=== PATIENT | female | born 1960 | race Caucasian/White ===

== ENCOUNTER 2018-05-24 04:06 | Day surgery (SDC) | payer BC ==
[~2018-05-24] VITALS: Ht 165.1 cm; Wt 108.0 kg
[~2018-05-24 04:06] MED LIST: IBUP-1127 PO; METO-236 PO; MOVIPREP POWDER PACKET PO STA
[2018-05-24] MEDS ORDERED: NS 1000ML 1,000 ML ONE (05:41)
[2018-05-24] MEDS ORDERED: DIPRIVAN IV ONE (06:42)
[2018-05-24] MEDS ORDERED: VERSED ONE (06:42)
[2018-05-24] MEDS ORDERED: SUBLIMAZE ONE (06:42)
[2018-05-24] MEDS ORDERED: WATER ONE (07:21)
[2018-05-24] MEDS ORDERED: NS 1000ML 1,000 ML IV SCH (07:30)
[2018-05-24 07:32] VITALS: BP 120/77
[2018-05-24 09:00] VITALS: BP 90/56
[2018-05-24] MEDS ORDERED: ZOFRAN ONE (09:11)
[2018-05-24 09:15] VITALS: BP 112/70
[2018-05-24 09:30] VITALS: BP 101/66
[2018-05-24] MEDS ORDERED: DILAUDID IV PRN (09:30)
[2018-05-24] MEDS ORDERED: PHENERGAN IV PRN (09:30)
[2018-05-24] MEDS ORDERED: ZOFRAN IV PRN (09:30)
[2018-05-24] MEDS ORDERED: BENADRYL IV PRN (09:30)
[2018-05-24 09:45] VITALS: BP 103/41
--- NOTE | 2018-05-24 12:15 | OPH ---
DATE OF SURGERY: 05/24/2018 PREOPERATIVE DIAGNOSES: History of dyspepsia and history of problems constipation. History of previous colectomy. POSTOPERATIVE DIAGNOSES: 1. Periglottic polyp. 2. Gastritis. 3. Gastric lipoma. 4. Esophagitis. 5. Diverticular disease of colon. 6. Check path on multiple rectal polyps. SURGEON: Jewel Jane DO PEER SPECIALIST: OR staff. ANESTHESIA: Total intravenous anesthesia by Juan Carlos Bernal CRNA. PROCEDURES PERFORMED: 1. Esophagogastroduodenoscopy with biopsy. 2. Long flexible colonoscopy to the cecum with cold forceps polypectomy in the rectum. SPECIMENS: 1. Gastric mucosa. 2. Esophageal mucosa. 3. Rectal polyp, all to path. ESTIMATED BLOOD LOSS: 7 mL. COUNTS: At the completion of the case, the counts were correct per OR staff. DESCRIPTION OF PROCEDURE: The patient is a very pleasant 57-year-old female known from previous evaluation. Prior to procedure, informed consent was obtained. At time of procedure, she was taken to the operative suite and placed in supine position. After time-out, she was placed in lateral recumbent position. After adequate sedation, esophagogastroduodenoscope was advanced transorally with deflation distally. In the periglottic folds, just superior to the vocal cords on the patient's left side, a polyp was identified. Due to its location, it is not biopsied. The camera was advanced further to the level of the second portion of duodenum. Once the duodenum was adequately visualized, camera was slowly withdrawn to facilitate the visualization of the duodenal bulb and the pylorus. Pylorus and distal stomach showed gastritis and biopsies were obtained. Retroflexed maneuver was performed. Cardia was grossly normal in the proximal stomach. Submucosal lipoma is identified. Camera was reduced. Stomach was decompressed. Scope was slowly withdrawn. Distal esophagus shows esophagitis and biopsies were obtained. The mid and proximal esophagus were grossly normal. The camera was removed. Procedure was discontinued. The patient remained in the OR. Timeout was previously completed. With adequate sedation, rectal exam was performed. There was noted to be a small hemorrhoid. There were no masses. Next, the colonoscope was advanced transanally with pneumoinsufflation proximally to the level of the cecum. Quality of prep was good. Once cecum was visualized, camera was slowly withdrawn to facilitate visualization of the ascending colon, hepatic flexure, transverse colon. In the splenic flexure distally, there is identified some diverticular disease. At the proximal rectum anastomosis from previous resection is identified. This is consistent with something of an extended sigmoid resection. The anastomosis grossly patent and normal. The minimal portion of descending colon does show some diverticular disease. The rectum was grossly normal; however, in the mid distal rectum, multiple small polyps identified, was removed with cold forceps. At level of 5 cm, camera was retroflexed and reinserted. Anal verge was visualized within normal limits. Camera was reduced. Colon was decompressed. Colonoscope was removed. A small external hemorrhoid was identified. The patient tolerated this procedure well. There were no acute complications noted. Jewel Jane DO DR: FIORELLA/maximino JOB# [id number] CC: Dr. Nik Pelayo
== END 2018-05-24 10:00 | disposition home or self-care (01) | DRG 392 ==
LOC: SDC 04:06
PROVIDERS: ATTEND Surgery
DX: K29.70 Gastritis, unspecified, without bleeding (principal); K62.1 Rectal polyp; K20.9 Esophagitis, unspecified; K57.30 Diverticulosis of large intestine without perforation or abscess without bleeding; K64.4 Residual hemorrhoidal skin tags; E78.5 Hyperlipidemia, unspecified; E66.9 Obesity, unspecified; Z68.39 Body mass index [BMI] 39.0-39.9, adult; Z79.899 Other long term (current) drug therapy; Z87.891 Personal history of nicotine dependence; Z98.51 Tubal ligation status; Z85.828 Personal history of other malignant neoplasm of skin; Z90.49 Acquired absence of other specified parts of digestive tract; Z90.710 Acquired absence of both cervix and uterus; Z88.8 Allergy status to other drugs, medicaments and biological substances; Z83.3 Family history of diabetes mellitus; Z82.5 Family history of asthma and other chronic lower respiratory diseases; Z82.49 Family history of ischemic heart disease and other diseases of the circulatory system
CPT/HCPCS: 43239; 45380; 88305; J2250; J2405; J3010; J3490; J7030; G0121

== ENCOUNTER → 2018-10-25 | Outpatient (CLI) | payer BC, SELFPAY ==
[~2018-10-25] MED LIST changes: +KENALOG-40 IM ONE; +LIDOCAINE 2% VIAL SQ ONE; -MOVIPREP POWDER PACKET PO STA
--- NOTE | 2018-10-25 13:45 | DIREP ---
PROCEDURE:FLUOROSCOPIC GUIDANCE NEEDLE PLACEMENT COMPARISON:None. INDICATIONS:OA RIGHT HIP; 0.6 MIN FLUORO TIME; 38.722 mGy TOTAL DOSE TECHNIQUE:After explaining the risks, benefits, and alternatives, both oral and written informed consent was obtained from the patient for fluoroscopically-guided hip steroid injection. The patient's right hip area was sterilely prepped and draped. The proposed needle tract was anesthetized with 1% lidocaine solution. Under fluoroscopic guidance, a 22 gauge spinal needle was advanced into the right hip joint. A small amount of contrast was injected confirm positioning. A mixture of 6 cc 2% lidocaine, and 1 cc of Kenalog 40 was injected into the hip joint. The needle was then removed. The patient experienced no postprocedural complication. Total fluoroscopy time 0.6 minutes FINDINGS:Imaging documents needle placement and injection of the right femoral head and anatomic neck. CONCLUSION:Fluoroscopic-guided right hip joint injection. Dictated by: Rigo Ocampo MD on 10/25/2018 at 01:47 PM
== END | disposition home or self-care (01) ==
LOC: RAD 09:33
PROVIDERS: ATTEND Orthopaedic Surgery
DX: M16.11 Unilateral primary osteoarthritis, right hip (principal); I25.10 Atherosclerotic heart disease of native coronary artery without angina pectoris; E78.5 Hyperlipidemia, unspecified; Z79.1 Long term (current) use of non-steroidal anti-inflammatories (NSAID); Z79.899 Other long term (current) drug therapy; Z90.710 Acquired absence of both cervix and uterus; Z90.49 Acquired absence of other specified parts of digestive tract; Z88.8 Allergy status to other drugs, medicaments and biological substances; Z87.891 Personal history of nicotine dependence; Z85.828 Personal history of other malignant neoplasm of skin; Z98.51 Tubal ligation status; Z82.5 Family history of asthma and other chronic lower respiratory diseases; Z82.49 Family history of ischemic heart disease and other diseases of the circulatory system; Z83.3 Family history of diabetes mellitus
CPT/HCPCS: 20610; 77002; J2001; J3301; Q9965

== ENCOUNTER 2018-11-23 04:40 | Inpatient (IN) | payer BC ==
[2018-11-19 16:08] VITALS: BP 136/68
--- NOTE | 2018-11-19 16:39 | PCM.EKG ---
[facility] Test Date: 2018-11-19 Test Time: 16:33:15 Pat Name: NORA JULIAN Department: Room: Gender: F Arboriculturist: AWLVLiberty : 1960 Requested By: JEAN CLAYTON Order Number: [id number] Reading MD: Chuck Young Measurements Intervals [place] Rate: 68 P: 68 W[place]: 180 QRS: 66 QRSD: 86 T: 60 QT: 408 QTc: 433 Interpretive Statements Normal sinus rhythm Nonspecific ST and T wave abnormality Abnormal ECG No previous ECG available for comparison Electronically Signed On 11-20-2018 10:24:09 DOCUMENT SCANNER by Chuck Young Please click the below link to view image of tracing.
[2018-11-19 16:55] LABS: BASOPHIL % 0.4 % (0.0-0.2); EOSINOPHIL # 0.2 10^3/uL (0.0-0.2); EOSINOPHIL % 3.4 % (0.0-5.0); HEMOGLOBIN 14.4 g/dL (12.0-15.0); LYMPHOCYTES # 1.6 10^3/uL (1.0-4.8); LYMPHOCYTES % 22.6 % (24.0-44.0); MEAN CELL HGB 30.3 pg (26-34); MEAN CELL HGB CONCENTRATION 33.9 g/dL (33-37); MEAN CORP VOLUME 89.5 fL (78-100); MEAN PLATELET VOLUME 10.3 fL (7.8-11.0); MONOCYTES # 0.4 10^3/uL (0.3-0.8); MONOCYTES % 5.5 % (5.0-12.0); NEUTROPHIL # 4.8 10^3/uL (1.8-7.7); NEUTROPHILS % 67.8 % (41.0-85.0); PLATELET COUNT 236 10^3/uL (150-400); RED CELL DISTRIBUTION WIDTH 14.3 % (11.5-14.5); WHITE BLOOD CELL 7.1 10^3/uL (4.5-11.0)
[2018-11-19 17:11] LABS: CALCIUM 9.3 mg/dL (8.4-10.5); CARBON DIOXIDE 26.8 mmol/L (20.0-32)
[2018-11-19 17:18] LABS: BILIRUBIN,URINE NEGATIVE (NEGATIVE); UROBILINOGEN,URINE NORMAL (NEGATIVE)
[2018-11-19 17:22] LABS: APPEARANCE,URINE CLEAR (CLEAR); UA COLOR YELLOW (YELLOW)
[~2018-11-23] VITALS: Ht 167.6 cm; Wt 103.9 kg
[2018-11-23] VITALS (10 sets, daily range): BP systolic 106–132; BP diastolic 52–91
[~2018-11-23 04:40] MED LIST changes: +CHOL500016 PO; +CYAN10005 PO; -KENALOG-40 IM ONE; -LIDOCAINE 2% VIAL SQ ONE; +VITA100T7 PO; +[UNRECOGNIZED DRUG - CODE] PO
[2018-11-23] MEDS ORDERED: LACTATED RINGERS 1,000 ML ONE ×3 (05:18→14:55)
[2018-11-23] MEDS ORDERED: NS 250ML 250 ML IV ONE ×2 (05:18→08:00)
[2018-11-23] MEDS ORDERED: ANCEF ONE (05:19)
[2018-11-23] MEDS ORDERED: NEOSTIGMINE ONE (06:47)
[2018-11-23] MEDS ORDERED: TORADOL ONE (06:48)
[2018-11-23] MEDS ORDERED: SUBLIMAZE ONE (06:48)
[2018-11-23] MEDS ORDERED: ZOFRAN ONE (06:48)
[2018-11-23] MEDS ORDERED: ZEMURON IV ONE (06:48)
[2018-11-23] MEDS ORDERED: VERSED ONE (06:48)
[2018-11-23] MEDS ORDERED: DILAUDID ONE (06:48)
[2018-11-23] MEDS ORDERED: DIPRIVAN IV ONE (06:49)
[2018-11-23] MEDS ORDERED: SENSORCAINE 0.5% VIAL ONE (06:49)
[2018-11-23] MEDS ORDERED: DECADRON ONE (06:49)
[2018-11-23] MEDS ORDERED: PRECEDEX IV ONE (06:50)
[2018-11-23] MEDS ORDERED: LIDOCAINE 2% VIAL ONE (07:00)
[2018-11-23] MEDS ORDERED: NS 3000ML IRR IR ONE (08:00)
[2018-11-23] MEDS ORDERED: SODIUM CHLORIDE IR ONE (08:00)
[2018-11-23] MEDS ORDERED: NS IV ONE (08:00)
[2018-11-23] MEDS ORDERED: TRANEXAMIC ACID IV ONE (08:06)
[2018-11-23] MEDS ORDERED: LEVO5TAB2 PO (08:48)
[2018-11-23] MEDS ORDERED: LANS30CA PO (08:48)
[2018-11-23] MEDS: LACTATED RINGERS 1,000 ML IV SCH (08:56)
[2018-11-23] MEDS ORDERED: NEURONTIN PO SCH (09:30)
[2018-11-23] MEDS ORDERED: TYLENOL PO SCH (09:30)
[2018-11-23] MEDS ORDERED: TRANSDERM-SCOP TD ONE (09:43)
[2018-11-23] MEDS ORDERED: ROCURONIUM BROMIDE IV ONE (14:56)
[2018-11-23] MEDS ORDERED: EPHEDRINE SULFATE ONE (14:56)
--- NOTE | 2018-11-23 15:12 | DIREP ---
PROCEDURE:XRAY HIP MIN 2VW-RT COMPARISON:None. INDICATIONS:S/P TOTAL LEFT KNEE FINDINGS: BONES:AP and lateral view of the right hip shows right hip arthroplasty.. The [place] right femoral head and the neck have been surgically resected. Skin jeff identified. The bony densities along the greater trochanter may represent soft tissue calcifications or enthesopathy. JOINTS:Bipolar right hip arthroplasty noted. SOFT TISSUES:Normal. OTHER:No additional findings. CONCLUSION:Right hip arthroplasty.. Dictated by: Santosh Banegas MD on 11/23/2018 at 03:09 PM
--- NOTE | 2018-11-23 15:19 | HPH ---
ADMIT DATE: 11/23/2018 CHIEF COMPLAINT: Painful right hip. HISTORY OF PRESENT ILLNESS: A 58-year-old female with a 4-5 month history of pain about the right hip secondary to osteoarthritis. The patient complains of groin pain as well as pain with prolonged walking and standing. She has admitted to Trendelenburg type limp. 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 She takes Flexeril and ibuprofen for the pain with only temporary relief. 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 The patient had temporary relief with intra-articular cortisone and lidocaine injection for about 2 days. MEDICATIONS: Include metoprolol as well as Flexeril and ibuprofen. PAST MEDICAL HISTORY: Include hypertension and obesity. PAST SURGICAL HISTORY: Include back surgery, tubal ligation, hysterectomy, colonoscopy, herniorrhaphy. ALLERGIES: INCLUDE CODEINE. SOCIAL HISTORY: The patient is . She does not smoke or drink. 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 FAMILY HISTORY: Positive for diabetes, renal failure, coronary artery disease as well as cancer. REVIEW OF SYSTEMS: Negative for chest pain, shortness of breath, nausea, vomiting, melena, hematochezia, dysuria, hematuria, fever, chills or weight loss. PHYSICAL EXAMINATION: GENERAL: Shows that she is 5 feet 5 inches and weighs 229 pounds, healthy appearing 58-year-old white female in no acute distress. HEENT: Within normal limits for her age. CHEST: Clear to auscultation. HEART: Regular rate and rhythm. ABDOMEN: Soft, nontender, good bowel sounds. EXTREMITIES: The patient's right hip has no tenderness about the trochanter. She has 90 degrees of flexion of the hip. Her external rotation is approximately 40 with pain, internal rotation has 20 degrees with pain. She has pain with adduction and internal rotation of the right hip. NEUROLOGICAL: The patient is awake and alert. She is oriented x 3. Her cranial nerves 2-12 are grossly intact. She has 5/5 strength in all muscle groups. Her dorsalis pedis and posterior tibial pulses are 2+. IMAGING STUDIES: X-rays show that she is tefg-wg-[id number] about the right hip. ASSESSMENT: Osteoarthritis, right hip. Other diagnoses include hypertension and obesity. PLAN: The patient is admitted for right total hip arthroplasty. The risks and hazards of the procedure have been explained to the patient. She understands the risk involved and wants to proceed as planned. Archie Paez MD DR: [facility]/maximino JOB# [id number]
[2018-11-23] MEDS ORDERED: ZOFRAN IV PRN (15:30)
[2018-11-23] MEDS ORDERED: SUBLIMAZE IV PRN (15:30)
[2018-11-23] MEDS ORDERED: VENTOLIN IH PRN (15:30)
[2018-11-23] MEDS ORDERED: PHENERGAN IV PRN (15:30)
[2018-11-23] MEDS ORDERED: CEPACOL SORE THROAT LOZENGE MM PRN (15:30)
[2018-11-23] MEDS ORDERED: LACTATED RINGERS 1,000 ML IV SCH (15:30)
[2018-11-23] MEDS ORDERED: REGLAN IV PRN (15:30)
[2018-11-23] MEDS ORDERED: BENADRYL IV PRN (15:30)
[2018-11-23] MEDS ORDERED: DILAUDID IV PRN (15:30)
--- NOTE | 2018-11-23 15:44 | PRM.PN ---
Subjective Subjective Date: Nov 23, 2018 Time: 15:42 Subjective awake and alert VSS Pain ok Xrays ok Stable Patient History: Asthma V19 CHILD ( A CHILD) Congestive heart failure 32 MOTHER, , Age:70 Diabetes mellitus G8 BROTHER FH: coronary artery bypass surgery 32 MOTHER, , Age:70 G8 BROTHER FH: coronary artery disease 32 MOTHER, , Age:70 G8 BROTHER Hypertension 32 MOTHER, , Age:70 G8 BROTHER No known health problems G8 SISTER V19 CHILD V19 CHILD V19 CHILD No Family History of: Alzheimer's disease Cerebrovascular disorder Chronic obstructive pulmonary disease Diabetes insipidus Parkinson's disease VTE VTE Risk Total Score: 4 VTE Risk Score VTE Risk: Score 0-1 = Low Risk (Aggressive mobilization; early ambulation; no VTE prophylaxis required) Score 2: Moderate Risk (Intermittent/Pneumatic Compression Device OR Lovenox/Heparin/Coumadin) Score 3-4: High Risk (Intermittent/Pneumatic Compression Device AND Lovenox/Heparin/Coumadin) Score > or =5: Highest Risk (Intermittent/Pneumatic Compression Device AND Lovenox/Heparin/Coumadin) Review of Systems Allergies: Coded Allergies: amoxicillin (Verified Allergy, Unknown, WELPS ON THE FACE, 11/20/18) clavulanic acid (Verified Allergy, Unknown, WELPS ON THE FACE, 11/20/18) codeine (Verified Allergy, Unknown, NAUSEA, VOMITING, 05/16/18) Scheduled Cholecalciferol (Vitamin D3) (Vitamin D3), 1 TAB PO BID, (Reported) Cyanocobalamin (Vitamin B-12) (Vitamin B-12), 1 TAB PO DAILY, (Reported) Lansoprazole (Lansoprazole), 1 CAP PO DAILY, (Reported) Metoprolol Succinate (Metoprolol Succinate), 1 TAB PO DAILY, (Reported) Psyllium Seed (Fiber Therapy), 1,368 GM PO BID, (Reported) Vitamin E Mixed (Vitamin E), 100 UNIT PO DAILY24, (Reported) Scheduled PRN Levocetirizine Dihydrochloride (Levocetirizine Dihydrochloride), 1 TAB PO HS PRN for SINUS DRAINAGE, (Reported) Discontinued Medications Ibuprofen (Ibuprofen), 600 MG PO BID PRN for PAIN, (Reported) Discontinued Reason: No Longer Taking Objective Vitals and I/O Vital Sign - Last 24 Hours 11/23/18 11/23/18 11/23/18 11/23/18 08:42 08:42 09:31 09:39 Temp 98.9 98.9 Pulse 72 76 70 Resp 18 18 18 B/P (MAP) 131/70 (90) 132/63 (86) 109/65 (80) Pulse Ox 96 99 99 O2 Delivery Room Air Room Air Nasal [place] Nasal Canula O2 Flow Rate 2 2 11/23/18 11/23/18 11/23/18 11/23/18 09:41 14:48 14:48 15:03 Temp 98.0 98.0 98.0 98.0 Pulse 69 77 72 Resp 18 16 16 B/P (MAP) 107/63 (78) 109/52 (71) 113/66 (82) Pulse Ox 98 98 98 O2 Delivery Nasal [place] Non-Rebreather Non-Rebreather O2 Flow Rate 2 15 15 15 11/23/18 11/23/18 15:18 15:33 Temp 97.6 97.9 97.6 97.9 Pulse 72 77 Resp 18 18 B/P (MAP) 106/59 (75) 111/66 (81) Pulse Ox 96 98 O2 Delivery Nasal [place] Nasal [place] O2 Flow Rate 3 3 Course Vitals & review Data Vital Sign - Last 24 Hours 11/23/18 11/23/18 11/23/18 11/23/18 08:42 08:42 09:31 09:39 Temp 98.9 98.9 Pulse 72 76 70 Resp 18 18 18 B/P (MAP) 131/70 (90) 132/63 (86) 109/65 (80) Pulse Ox 96 99 99 O2 Delivery Room Air Room Air Nasal [place] Nasal [place] O2 Flow Rate 2 2 11/23/18 11/23/18 11/23/18 11/23/18 09:41 14:48 14:48 15:03 Temp 98.0 98.0 98.0 98.0 Pulse 69 77 72 Resp 18 16 16 B/P (MAP) 107/63 (78) 109/52 (71) 113/66 (82) Pulse Ox 98 98 98 O2 Delivery Nasal [place] Non-Rebreather Non-Rebreather O2 Flow Rate 2 15 15 15 11/23/18 11/23/18 15:18 15:33 Temp 97.6 97.9 97.6 97.9 Pulse 72 77 Resp 18 18 B/P (MAP) 106/59 (75) 111/66 (81) Pulse Ox 96 98 O2 Delivery Nasal [place] Nasal [place] O2 Flow Rate 3 3 Current Medications Medications (Trade) Dose Ordered Sig/Jovanni PRN Reason Start Time Stop Time Status Last Admin Acetaminophen (Tylenol) 1,000 mg Q6H 11/23/18 09:30 12/23/18 09:29 Albuterol Sulfate (Ventolin) 2.5 mg OT PRN WHEEZING 11/23/18 15:30 11/28/18 15:29 Cefazolin Sodium/ Dextrose (Ancef 2 Gm/D5W 50ml) 2 gm Q8 11/23/18 22:00 11/24/18 14:01 UNV Celecoxib (Celebrex) 200 mg BID 11/23/18 21:00 12/23/18 20:59 UNV Celecoxib (Celebrex) 200 mg Q12HR 11/23/18 21:00 11/23/18 21:01 Cholecalciferol (Vitamin D) 5,000 unit BID 11/23/18 21:00 12/23/18 20:59 UNV Cyanocobalamin (Vitamin B-12) 1,000 mcg DAILY 11/24/18 09:00 12/24/18 08:59 UNV Diphenhydramine HCl (Benadryl) 25 mg Q5MIN PRN NAUSEA / VOMITING 11/23/18 15:30 11/28/18 15:29 Docusate Sodium (Colace) 100 mg DAILY 11/24/18 09:00 12/24/18 08:59 UNV Famotidine (Pepcid) 20 mg DAILY 11/24/18 09:00 12/24/18 08:59 UNV Fentanyl Citrate (Sublimaze) 12.5 mcg Q5MIN PRN PAIN 11/23/18 15:30 11/24/18 15:29 11/23/18 15:13 Gabapentin (Neurontin) 400 mg Q24HRS 11/24/18 09:30 11/24/18 09:31 Hydromorphone HCl (Dilaudid) 0.2 mg Q5MIN PRN PAIN MILD 11/23/18 15:30 11/24/18 15:29 Hydromorphone HCl (Dilaudid) 3 mg Q4H PRN PAIN 8-10 11/23/18 15:30 12/23/18 15:29 UNV Metoclopramide HCl (Reglan) 10 mg PRN PRN NAUSEA / VOMITING 11/23/18 15:30 12/23/18 15:29 UNV Metoprolol Succinate (Toprol Xl) 25 mg DAILY 11/24/18 09:00 12/24/18 08:59 UNV Ondansetron HCl (Zofran) 4 mg PRN PRN nv 11/23/18 15:30 11/28/18 15:29 Ondansetron HCl (Zofran) 4 mg Q4H PRN NAUSEA / VOMITING 11/23/18 15:30 12/23/18 15:29 UNV Promethazine HCl (Phenergan) 6.25 mg PRN PRN NAUSEA / VOMITING 11/23/18 15:30 11/28/18 15:29 Rivaroxaban (Xarelto) 10 mg DAILY 11/24/18 09:00 12/24/18 08:59 UNV Throat Lozenges (Cepacol Sore Throat Lozenge) 1 each PRN PRN SORE THROAT 11/23/18 15:30 12/23/18 15:29 UNV Tramadol HCl (Ultram) 50 mg Q4HR 11/23/18 16:00 12/23/18 15:59 UNV Tramadol HCl (Ultram) 100 mg Q4HR PRN SEVERE PAIN 11/23/18 15:30 12/23/18 15:29 UNV O2 Sat by Pulse Oximetry: 98 Oxygen Flow Rate: 3 JEAN CLAYTON MD Nov 23, 2018 15:44
[2018-11-23] MEDS: TYLENOL PO SCH ×2 (15:49→17:11)
--- NOTE | 2018-11-23 15:50 | NUR ---
ARRIVAL PT ARRIVED FROM OR AT THIS TIME. REPORT RECEIVED FROM SHEEBA HURTADO AND ASSUMED CARE OF PT
--- NOTE | 2018-11-23 16:04 | DIREP ---
PROCEDURE:XRAY HIP MIN 2VW-RT COMPARISON:[facility], , XRAY HIP MIN 2VW-RT, 11/23/2018, 02:13 PM. INDICATIONS:postop FINDINGS: BONES:Postoperative AP and lateral views of the right hip shows bipolar right hip arthroplasty. The stem of the femoral component is centrally seated within the shaft of the femur. Postoperative skin jeff noted. JOINTS:Normal. SOFT TISSUES:Normal. OTHER:No additional findings. CONCLUSION:Satisfactory postoperative appearance of the right hip arthroplasty. Dictated by: Santosh Banegas MD on 11/23/2018 at 04:01 PM
--- NOTE | 2018-11-23 16:25 | NUR ---
DISCHARGE PLAN CASE MANAGEMENT VISITED WITH PATIENT , GAB, VIA PHONE @ [phone] BECAUSE PATIENT WAS STILL SLEEPING POST SURGERY. LIVES AT HOME WITH . DOES NOT HAVE DME REQUESTED WALKER FROM [facility]. CM FAXED ORDER TO [facility] AND SPOKE TO LETY ALMONTE ABOUT ORDER. CM ALSO GAVE INSTRUCTIONS TO PICK WALKER UP FROM [facility] TODAY BEFORE 5:00 OR ON MONDAY. GAB ALSO REQUESTED TO HAVE PT/OT TO BE DONE AT [facility] OUTPATIENT PT. CM SPOKE WITH JOBY CASTELLANO PT AND SET UP AN APPOINTMENT FOR Monday11/27/18 @ 0900. CM PUT APPOINTMENT TIME AND INSTRUCTIONS TO TAKE THE YELLOW ORDER FORM TO ADMISSIONS TO PRE REGISTER AT LEAST 30 MINUTES BEFORE APPOINTMENT. DENIES NEED FOR HOME OXYGEN. CM NOTIFIED CEASAR CHERRY RN, CHARGE NURSE OF ABOVE. DISCHARGE GOAL IS TO DISCHARGE HOME WITH AND TO HAVE PHYSICAL THERAPY DONE AT [facility] OUTPATIENT. DENIES FURTHER NEEDS AT THIS TIME.
[2018-11-23] MEDS: ULTRAM PO PRN ×2 (17:10→21:22)
[2018-11-23] MEDS: ZOFRAN IV PRN (17:10)
[2018-11-23] MEDS: ULTRAM PO SCH ×2 (17:11→20:00)
--- NOTE | 2018-11-23 19:59 | OPH ---
DATE OF SURGERY: 11/23/2018 PREOPERATIVE DIAGNOSIS: Osteoarthritis of the right hip. POSTOPERATIVE DIAGNOSIS: Osteoarthritis of the right hip. OPERATIVE PROCEDURE: Right total hip arthroplasty using Medacta size 1 AMIS stem press fit, a size 54 Versafitcup with a 28 mm +3.5 ceramic head and a size 54 dual-articulating cup making it a ceramic on polyethylene right total hip arthroplasty. ANESTHESIA: General endotracheal. BLOOD LOSS: 700 mL. DRAINS: None. DESCRIPTION OF INDICATIONS: A 58-year-old female with debilitating pain about the right hip over the last 5 months. She complains of limping as well as pain with standing. 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 She had temporary relief with a cortisone injection intraarticularly about the hip, but it is no better with Flexeril and Advil. She has jyiy-yd-zudp about the medial and inferior border of the hip. Taken to the operating room today for right total hip arthroplasty for pain relief. DESCRIPTION OF PROCEDURE: The patient was placed on the operating table in the supine position. General endotracheal anesthetic was induced without difficulty. The right foot and ankle were then well padded and placed in the traction unit. Right lower extremity was then sterilely prepped and draped. The patient had an anterior incision made about the hip. The incision was taken through the skin and the subcutaneous tissues. Bleeding was controlled with cautery. The tensor fascia was opened in line with the skin incision. The muscle belly was reflected laterally. The rectus fascia was opened and the rectus muscle was reflected medially. The circumflex vessels were identified and coagulated with the Aquamantys device. The patient then had the fat pad over the capsule excised. The capsular incision was made and the capsule was retracted laterally and proximally. The femoral neck cut was then made with the saw. The patient had a head removed with the corkscrew device. The fovea was cleared of any soft tissue and any bleeding was coagulated with the Aquamantys device. The labrum was excised. The acetabulum was sequentially reamed up to a size 54. The 54 had a good fit both clinically and radiographically. The patient then had a 54 Versafitcup placed and impacted into position. Again, clinically and radiographically, the alignment looked acceptable. The patient then had the posterior ligaments released. The hip was placed in maximal external rotation and hyperextension. We had to shorten neck cut because we were having difficulty passing the rasp down the proximal femur. Eventually, the starter rasp was fully seated and then we sequentially rasped the proximal femur up to a size 1. We did a trial reduction starting with a minus neck length working up to a 3.5. The 3.5 had good stability clinically and radiographically the leg lengths appeared appropriate. The sizing of the components all appeared satisfactory. The trial components were then removed. A size 1 Medacta AMIS stem was then impacted into position. The ____ 28-mm ceramic head with the 54 bipolar cup was then impacted on to the Branch taper neck. Again, the hip was reduced with good stability clinically. Radiographically, the leg lengths appeared appropriate. The sizing of the component and the alignment appeared appropriate. The patient had the wounds irrigated with Betadine solution for 3 minutes. The capsule was closed with a #2 PDS in an interrupted manner. The IT band was then closed with a barbed #2 PDS in a running manner. The subcutaneous was closed with a 2-0 Monocryl barbed in a running manner and the skin was closed with jeff. A Prevena dressing was applied. The patient was extubated in the operating room and sent to recovery in stable condition. Archie Paez MD DR: [facility]/maximino JOB# [id number]
[2018-11-23 20:15] LABS: HEMOGLOBIN 13.1 g/dL (12.0-15.0); MEAN CELL HGB CONCENTRATION 32.9 g/dL (33-37); MEAN CORP VOLUME 91.1 fL (78-100); MEAN PLATELET VOLUME 9.8 fL (7.8-11.0); RED CELL DISTRIBUTION WIDTH 14.6 % (11.5-14.5); WHITE BLOOD CELL 15.4 10^3/uL (4.5-11.0)
[2018-11-23] MEDS ORDERED: CELEBREX PO SCH (21:00)
[2018-11-23] MEDS: VITAMIN D PO SCH (21:22)
[2018-11-23] MEDS: CELEBREX PO SCH (21:23)
[2018-11-23] MEDS: ANCEF 2 GM/D5W 50ML 50 ML IV SCH (21:24)
[2018-11-23] MEDS ORDERED: ANCEF 2 GM/D5W 50ML IV SCH (22:00)
[2018-11-24 00:05] VITALS: BP_SYST 101; BP_SYST 127; BP_DIAS 57; BP_DIAS 71
[2018-11-24] MEDS: ULTRAM PO PRN ×6 (01:11→21:08)
[2018-11-24] MEDS: TYLENOL PO SCH ×5 (01:11→23:41)
[2018-11-24] MEDS: LACTATED RINGERS 1,000 ML IV SCH (03:14)
[2018-11-24] MEDS: DILAUDID IV PRN ×3 (03:30→19:40)
[2018-11-24] MEDS: ULTRAM PO SCH ×6 (04:00→20:00)
[2018-11-24 04:58] VITALS: BP 108/57
[2018-11-24] MEDS: ANCEF 2 GM/D5W 50ML 50 ML IV SCH ×2 (05:22→14:44)
[2018-11-24 05:34] LABS: MEAN CELL HGB CONCENTRATION 32.9 g/dL (33-37); MEAN CORP VOLUME 91.3 fL (78-100); RED CELL DISTRIBUTION WIDTH 14.4 % (11.5-14.5)
[2018-11-24 08:00] VITALS: BP 95/61
[2018-11-24] MEDS: CLARITIN PO SCH (09:00)
[2018-11-24] MEDS: PROTONIX PO SCH (09:00)
[2018-11-24] MEDS: TOPROL XL PO SCH (09:00)
[2018-11-24] MEDS ORDERED: NEURONTIN PO SCH (09:30)
--- NOTE | 2018-11-24 09:40 | PRM.PN ---
Subjective Subjective Date: Nov 24, 2018 Time: 09:37 Subjective Pain ok VSS Unable to walker yesterday because of dizziness HGB 12 NVM+ Stable Patient History: Asthma V19 CHILD ( A CHILD) Congestive heart failure 32 MOTHER, , Age:70 Diabetes mellitus G8 BROTHER FH: coronary artery bypass surgery 32 MOTHER, , Age:70 G8 BROTHER FH: coronary artery disease 32 MOTHER, , Age:70 G8 BROTHER Hypertension 32 MOTHER, , Age:70 G8 BROTHER No known health problems G8 SISTER V19 CHILD V19 CHILD V19 CHILD No Family History of: Alzheimer's disease Cerebrovascular disorder Chronic obstructive pulmonary disease Diabetes insipidus Parkinson's disease VTE VTE Risk Total Score: 4 VTE Risk Score VTE Risk: Score 0-1 = Low Risk (Aggressive mobilization; early ambulation; no VTE prophylaxis required) Score 2: Moderate Risk (Intermittent/Pneumatic Compression Device OR Lovenox/Heparin/Coumadin) Score 3-4: High Risk (Intermittent/Pneumatic Compression Device AND Lovenox/Heparin/Coumadin) Score > or =5: Highest Risk (Intermittent/Pneumatic Compression Device AND Lovenox/Heparin/Coumadin) Review of Systems Allergies: Coded Allergies: amoxicillin (Verified Allergy, Unknown, WELPS ON THE FACE, 11/20/18) clavulanic acid (Verified Allergy, Unknown, WELPS ON THE FACE, 11/20/18) codeine (Verified Allergy, Unknown, NAUSEA, VOMITING, 05/16/18) Scheduled Cholecalciferol (Vitamin D3) (Vitamin D3), 1 TAB PO BID, (Reported) Cyanocobalamin (Vitamin B-12) (Vitamin B-12), 1 TAB PO DAILY, (Reported) Lansoprazole (Lansoprazole), 1 CAP PO DAILY, (Reported) Metoprolol Succinate (Metoprolol Succinate), 1 TAB PO DAILY, (Reported) Psyllium Seed (Fiber Therapy), 1,368 GM PO BID, (Reported) Vitamin E Mixed (Vitamin E), 100 UNIT PO DAILY24, (Reported) Scheduled PRN Levocetirizine Dihydrochloride (Levocetirizine Dihydrochloride), 1 TAB PO HS PRN for SINUS DRAINAGE, (Reported) Discontinued Medications Ibuprofen (Ibuprofen), 600 MG PO BID PRN for PAIN, (Reported) Discontinued Reason: No Longer Taking Objective Vitals and I/O Vital Sign - Last 24 Hours 11/23/18 11/23/18 11/23/18 11/23/18 09:39 09:41 14:48 14:48 Temp 98.0 98.0 Pulse 70 69 77 Resp 18 18 16 B/P (MAP) 109/65 (80) 107/63 (78) 109/52 (71) Pulse Ox 99 98 98 O2 Delivery Nasal Canula Nasal Canula Non-Rebreather O2 Flow Rate 2 2 15 15 11/23/18 11/23/18 11/23/18 11/23/18 15:03 15:18 15:33 15:45 Temp 98.0 97.6 97.9 97.8 98.0 97.6 97.9 97.8 Pulse 72 72 77 77 Resp 16 18 18 18 B/P (MAP) 113/66 (82) 106/59 (75) 111/66 (81) 110/70 (83) Pulse Ox 98 96 98 98 O2 Delivery Non-Rebreather Nasal Canula Nasal Canula Nasal Canula O2 Flow Rate 15 3 3 3 11/23/18 11/23/18 11/23/18 11/24/18 17:00 19:19 20:15 00:05 Temp 97.8 97.5 97.8 97.5 Pulse 80 81 64 Resp 16 18 18 B/P (MAP) 119/91 (100) 127/71 (89) Pulse Ox 99 93 99 O2 Delivery Nasal Cannula Nasal Cannula Nasal Canula Nasal Canula O2 Flow Rate 2.00 2.00 2.00 2.00 FiO2 28 11/24/18 11/24/18 04:58 06:36 Temp 98.1 98.1 Pulse 61 Resp 18 B/P (MAP) 108/57 (74) Pulse Ox 96 O2 Delivery Nasal Canula Nasal Cannula O2 Flow Rate 2.00 2.00 Intake and Output 11/23/18 11/23/18 11/24/18 15:01 23:01 07:01 Intake Total 6850 ml 715 ml 632 ml Output Total 400 ml 30 ml 1600 ml Balance 6450 ml 685 ml -968 ml Course Sepsis Screening Results: Posi: NEGATIVE Sepsis Qualifier/Stage: NO DEFINITE RISK Vitals & review Data Vital Sign - Last 24 Hours 11/23/18 11/23/18 11/23/18 11/23/18 08:42 08:42 09:31 09:39 Temp 98.9 98.9 Pulse 72 76 70 Resp 18 18 18 B/P (MAP) 131/70 (90) 132/63 (86) 109/65 (80) Pulse Ox 96 99 99 O2 Delivery Room Air Room Air Nasal Canula Nasal Canula O2 Flow Rate 2 2 11/23/18 11/23/18 11/23/18 11/23/18 09:41 14:48 14:48 15:03 Temp 98.0 98.0 98.0 98.0 Pulse 69 77 72 Resp 18 16 16 B/P (MAP) 107/63 (78) 109/52 (71) 113/66 (82) Pulse Ox 98 98 98 O2 Delivery Nasal Canula Non-Rebreather Non-Rebreather O2 Flow Rate 2 15 15 15 11/23/18 11/23/18 15:18 15:33 Temp 97.6 97.9 97.6 97.9 Pulse 72 77 Resp 18 18 B/P (MAP) 106/59 (75) 111/66 (81) Pulse Ox 96 98 O2 Delivery Nasal Canula Nasal Canula O2 Flow Rate 3 3 Current Medications Medications (Trade) Dose Ordered Sig/Jovanni PRN Reason Start Time Stop Time Status Last Admin Acetaminophen (Tylenol) 1,000 mg Q6H 11/23/18 09:30 12/23/18 09:29 Albuterol Sulfate (Ventolin) 2.5 mg OT PRN WHEEZING 11/23/18 15:30 11/28/18 15:29 Cefazolin Sodium/ Dextrose (Ancef 2 Gm/D5W 50ml) 2 gm Q8 11/23/18 22:00 11/24/18 14:01 UNV Celecoxib (Celebrex) 200 mg BID 11/23/18 21:00 12/23/18 20:59 UNV Celecoxib (Celebrex) 200 mg Q12HR 11/23/18 21:00 11/23/18 21:01 Cholecalciferol (Vitamin D) 5,000 unit BID 11/23/18 21:00 12/23/18 20:59 UNV Cyanocobalamin (Vitamin B-12) 1,000 mcg DAILY 11/24/18 09:00 12/24/18 08:59 UNV Diphenhydramine HCl (Benadryl) 25 mg Q5MIN PRN NAUSEA / VOMITING 11/23/18 15:30 11/28/18 15:29 Docusate Sodium (Colace) 100 mg DAILY 11/24/18 09:00 12/24/18 08:59 UNV Famotidine (Pepcid) 20 mg DAILY 11/24/18 09:00 12/24/18 08:59 UNV Fentanyl Citrate (Sublimaze) 12.5 mcg Q5MIN PRN PAIN 11/23/18 15:30 11/24/18 15:29 11/23/18 15:13 Gabapentin (Neurontin) 400 mg Q24HRS 11/24/18 09:30 11/24/18 09:31 Hydromorphone HCl (Dilaudid) 0.2 mg Q5MIN PRN PAIN MILD 11/23/18 15:30 11/24/18 15:29 Hydromorphone HCl (Dilaudid) 3 mg Q4H PRN PAIN 8-10 11/23/18 15:30 12/23/18 15:29 UNV Metoclopramide HCl (Reglan) 10 mg PRN PRN NAUSEA / VOMITING 11/23/18 15:30 12/23/18 15:29 UNV Metoprolol Succinate (Toprol Xl) 25 mg DAILY 11/24/18 09:00 12/24/18 08:59 UNV Ondansetron HCl (Zofran) 4 mg PRN PRN nv 11/23/18 15:30 11/28/18 15:29 Ondansetron HCl (Zofran) 4 mg Q4H PRN NAUSEA / VOMITING 11/23/18 15:30 12/23/18 15:29 UNV Promethazine HCl (Phenergan) 6.25 mg PRN PRN NAUSEA / VOMITING 11/23/18 15:30 11/28/18 15:29 Rivaroxaban (Xarelto) 10 mg DAILY 11/24/18 09:00 12/24/18 08:59 UNV Throat Lozenges (Cepacol Sore Throat Lozenge) 1 each PRN PRN SORE THROAT 11/23/18 15:30 12/23/18 15:29 UNV Tramadol HCl (Ultram) 50 mg Q4HR 11/23/18 16:00 12/23/18 15:59 UNV Tramadol HCl (Ultram) 100 mg Q4HR PRN SEVERE PAIN 11/23/18 15:30 12/23/18 15:29 UNV Sepsis Infection Criteria Pres: None LEVEL 1 SEPSIS INFECTION CRITE: ABX Therapy, Recent Invasive Procedure Respiratory Evidence: O2 SAT<90room air O2 Sat by Pulse Oximetry: 96 Oxygen Flow Rate: 2.00 JEAN CLAYTON MD Nov 24, 2018 09:40
[2018-11-24] MEDS: XARELTO PO SCH (10:26)
[2018-11-24] MEDS: COLACE PO SCH (10:26)
[2018-11-24] MEDS: CELEBREX PO SCH ×2 (10:27→21:08)
[2018-11-24] MEDS: VITAMIN B-12 PO SCH (10:28)
[2018-11-24] MEDS: PEPCID PO SCH (10:29)
[2018-11-24] MEDS: VITAMIN D PO SCH ×2 (10:29→21:07)
[2018-11-24 12:36] VITALS: BP 112/69
[2018-11-24] MEDS: ZOFRAN IV PRN ×2 (13:06→17:27)
--- NOTE | 2018-11-24 13:41 | NUR ---
activity Patient assisted to the bathroom. Ambulated from chair to the bathroom and then back to bed using a walker and standby assist.
[2018-11-24 16:07] VITALS: BP 97/57
[2018-11-24 19:50] VITALS: BP 132/66
[2018-11-25 00:42] VITALS: BP 106/58
[2018-11-25] MEDS: ULTRAM PO PRN ×5 (01:14→20:31)
[2018-11-25] MEDS: TYLENOL PO SCH ×4 (03:30→20:32)
[2018-11-25] MEDS: ULTRAM PO SCH ×6 (04:00→20:00)
[2018-11-25 05:17] VITALS: BP 118/66
[2018-11-25] MEDS: PROTONIX PO SCH (08:05)
--- NOTE | 2018-11-25 08:06 | NUR ---
Report Assumed care of patient when report received from Rakel [employer] MANAGER at shift change.
[2018-11-25 08:20] LABS: HEMOGLOBIN 10.9 g/dL (12.0-15.0); MEAN CELL HGB 30.3 pg (26-34); MEAN CORP VOLUME 91.7 fL (78-100); MEAN PLATELET VOLUME 9.3 fL (7.8-11.0); RED CELL DISTRIBUTION WIDTH 14.4 % (11.5-14.5); WHITE BLOOD CELL 10.3 10^3/uL (4.5-11.0)
[2018-11-25 08:30] VITALS: BP 112/64
--- NOTE | 2018-11-25 08:49 | PRM.PN ---
Subjective Subjective Date: Nov 25, 2018 Time: 08:44 Subjective Got nauseated yesterday with PT Afebrile VSS HGB 10.9 postop anemia from surgery expected Zofran for nausea Cont with PT Patient History: Asthma V19 CHILD ( A CHILD) Congestive heart failure 32 MOTHER, , Age:70 Diabetes mellitus G8 BROTHER FH: coronary artery bypass surgery 32 MOTHER, , Age:70 G8 BROTHER FH: coronary artery disease 32 MOTHER, , Age:70 G8 BROTHER Hypertension 32 MOTHER, , Age:70 G8 BROTHER No known health problems G8 SISTER V19 CHILD V19 CHILD V19 CHILD No Family History of: Alzheimer's disease Cerebrovascular disorder Chronic obstructive pulmonary disease Diabetes insipidus Parkinson's disease VTE VTE Risk Total Score: 4 VTE Risk Score VTE Risk: Score 0-1 = Low Risk (Aggressive mobilization; early ambulation; no VTE prophylaxis required) Score 2: Moderate Risk (Intermittent/Pneumatic Compression Device OR Lovenox/Heparin/Coumadin) Score 3-4: High Risk (Intermittent/Pneumatic Compression Device AND Lovenox/Heparin/Coumadin) Score > or =5: Highest Risk (Intermittent/Pneumatic Compression Device AND Lovenox/Heparin/Coumadin) Review of Systems Allergies: Coded Allergies: amoxicillin (Verified Allergy, Unknown, WELPS ON THE FACE, 11/20/18) clavulanic acid (Verified Allergy, Unknown, WELPS ON THE FACE, 11/20/18) codeine (Verified Allergy, Unknown, NAUSEA, VOMITING, 05/16/18) Scheduled Cholecalciferol (Vitamin D3) (Vitamin D3), 1 TAB PO BID, (Reported) Cyanocobalamin (Vitamin B-12) (Vitamin B-12), 1 TAB PO DAILY, (Reported) Lansoprazole (Lansoprazole), 1 CAP PO DAILY, (Reported) Metoprolol Succinate (Metoprolol Succinate), 1 TAB PO DAILY, (Reported) Psyllium Seed (Fiber Therapy), 1,368 GM PO BID, (Reported) Vitamin E Mixed (Vitamin E), 100 UNIT PO DAILY24, (Reported) Scheduled PRN Levocetirizine Dihydrochloride (Levocetirizine Dihydrochloride), 1 TAB PO HS PRN for SINUS DRAINAGE, (Reported) Discontinued Medications Ibuprofen (Ibuprofen), 600 MG PO BID PRN for PAIN, (Reported) Discontinued Reason: No Longer Taking Objective Vitals and I/O Vital Sign - Last 24 Hours 11/24/18 11/24/18 11/24/18 11/24/18 11:08 11:09 12:36 14:52 Temp 98.2 98.2 Pulse 63 75 Resp 16 16 16 B/P (MAP) 112/69 (83) Pulse Ox 93 93 92 O2 Delivery Room Air Room Air Room Air FiO2 21 11/24/18 11/24/18 11/24/18 11/24/18 16:07 19:18 19:50 20:14 Temp 98.6 99.1 98.6 99.1 Pulse 69 83 77 Resp 18 18 16 B/P (MAP) 97/57 (70) 132/66 (88) Pulse Ox 95 90 94 O2 Delivery Room Air Nasal Cannula Nasal Canula Nasal Cannula O2 Flow Rate 2.00 2.00 2.00 FiO2 28 11/25/18 11/25/18 11/25/18 00:42 05:17 08:20 Temp 98.4 98.6 98.4 98.6 Pulse 67 80 75 Resp 16 16 16 B/P (MAP) 106/58 (74) 118/66 (83) Pulse Ox 97 96 95 O2 Delivery Nasal Canula Nasal Canula Nasal Cannula O2 Flow Rate 2.00 2.00 2.00 FiO2 28 Intake and Output 11/24/18 11/24/18 11/25/18 15:01 23:01 07:01 Intake Total 720 ml Output Total 1000 ml Balance -280 ml Course Sepsis Screening Results: Posi: NEGATIVE Sepsis Qualifier/Stage: NO DEFINITE RISK Vitals & review Data Vital Sign - Last 24 Hours 11/23/18 11/23/18 11/23/18 11/23/18 08:42 08:42 09:31 09:39 Temp 98.9 98.9 Pulse 72 76 70 Resp 18 18 18 B/P (MAP) 131/70 (90) 132/63 (86) 109/65 (80) Pulse Ox 96 99 99 O2 Delivery Room Air Room Air Nasal Canula Nasal Canula O2 Flow Rate 2 2 11/23/18 11/23/18 11/23/18 11/23/18 09:41 14:48 14:48 15:03 Temp 98.0 98.0 98.0 98.0 Pulse 69 77 72 Resp 18 16 16 B/P (MAP) 107/63 (78) 109/52 (71) 113/66 (82) Pulse Ox 98 98 98 O2 Delivery Nasal Canula Non-Rebreather Non-Rebreather O2 Flow Rate 2 15 15 15 11/23/18 11/23/18 15:18 15:33 Temp 97.6 97.9 97.6 97.9 Pulse 72 77 Resp 18 18 B/P (MAP) 106/59 (75) 111/66 (81) Pulse Ox 96 98 O2 Delivery Nasal Canula Nasal Canula O2 Flow Rate 3 3 Current Medications Medications (Trade) Dose Ordered Sig/Jovanni PRN Reason Start Time Stop Time Status Last Admin Acetaminophen (Tylenol) 1,000 mg Q6H 11/23/18 09:30 12/23/18 09:29 Albuterol Sulfate (Ventolin) 2.5 mg OT PRN WHEEZING 11/23/18 15:30 11/28/18 15:29 Cefazolin Sodium/ Dextrose (Ancef 2 Gm/D5W 50ml) 2 gm Q8 11/23/18 22:00 11/24/18 14:01 UNV Celecoxib (Celebrex) 200 mg BID 11/23/18 21:00 12/23/18 20:59 UNV Celecoxib (Celebrex) 200 mg Q12HR 11/23/18 21:00 11/23/18 21:01 Cholecalciferol (Vitamin D) 5,000 unit BID 11/23/18 21:00 12/23/18 20:59 UNV Cyanocobalamin (Vitamin B-12) 1,000 mcg DAILY 11/24/18 09:00 12/24/18 08:59 UNV Diphenhydramine HCl (Benadryl) 25 mg Q5MIN PRN NAUSEA / VOMITING 11/23/18 15:30 11/28/18 15:29 Docusate Sodium (Colace) 100 mg DAILY 11/24/18 09:00 12/24/18 08:59 UNV Famotidine (Pepcid) 20 mg DAILY 11/24/18 09:00 12/24/18 08:59 UNV Fentanyl Citrate (Sublimaze) 12.5 mcg Q5MIN PRN PAIN 11/23/18 15:30 11/24/18 15:29 11/23/18 15:13 Gabapentin (Neurontin) 400 mg Q24HRS 11/24/18 09:30 11/24/18 09:31 Hydromorphone HCl (Dilaudid) 0.2 mg Q5MIN PRN PAIN MILD 11/23/18 15:30 11/24/18 15:29 Hydromorphone HCl (Dilaudid) 3 mg Q4H PRN PAIN 8-10 11/23/18 15:30 12/23/18 15:29 UNV Metoclopramide HCl (Reglan) 10 mg PRN PRN NAUSEA / VOMITING 11/23/18 15:30 12/23/18 15:29 UNV Metoprolol Succinate (Toprol Xl) 25 mg DAILY 11/24/18 09:00 12/24/18 08:59 UNV Ondansetron HCl (Zofran) 4 mg PRN PRN nv 11/23/18 15:30 11/28/18 15:29 Ondansetron HCl (Zofran) 4 mg Q4H PRN NAUSEA / VOMITING 11/23/18 15:30 12/23/18 15:29 UNV Promethazine HCl (Phenergan) 6.25 mg PRN PRN NAUSEA / VOMITING 11/23/18 15:30 11/28/18 15:29 Rivaroxaban (Xarelto) 10 mg DAILY 11/24/18 09:00 12/24/18 08:59 UNV Throat Lozenges (Cepacol Sore Throat Lozenge) 1 each PRN PRN SORE THROAT 11/23/18 15:30 12/23/18 15:29 UNV Tramadol HCl (Ultram) 50 mg Q4HR 11/23/18 16:00 12/23/18 15:59 UNV Tramadol HCl (Ultram) 100 mg Q4HR PRN SEVERE PAIN 11/23/18 15:30 12/23/18 15:29 UNV Sepsis Infection Criteria Pres: Suspected Infection LEVEL 1 SEPSIS INFECTION CRITE: ABX Therapy, Recent Invasive Procedure LEVEL 2-SIRS (LIST ALL THAT AP: None/Not assessed Cardiovascular Evidence: Not Assessed or None Hematologic Evidence: None/Not assessed Hepatic Evidence: None/Not assessed Metabolic Evidence: None/Not assessed Neurological Evidence: None/Not assessed Respiratory Evidence: None/Not assessed Renal Evidence: None/Not assessed O2 Sat by Pulse Oximetry: 95 Oxygen Flow Rate: 2.00 JEAN CLAYTON MD Nov 25, 2018 08:49
[2018-11-25] MEDS: VITAMIN B-12 PO SCH (09:35)
[2018-11-25] MEDS: TOPROL XL PO SCH (09:35)
[2018-11-25] MEDS: PEPCID PO SCH (09:35)
[2018-11-25] MEDS: CELEBREX PO SCH ×2 (09:36→20:32)
[2018-11-25] MEDS: CLARITIN PO SCH (09:37)
[2018-11-25] MEDS: COLACE PO SCH (09:37)
[2018-11-25] MEDS: VITAMIN D PO SCH ×2 (09:37→20:32)
[2018-11-25] MEDS: XARELTO PO SCH (09:37)
[2018-11-25] MEDS: DILAUDID IV PRN (10:07)
[2018-11-25] MEDS: ZOFRAN IV PRN (10:07)
--- NOTE | 2018-11-25 11:15 | NUR ---
void Patient had post waller void at 1000. No hat in the toilet, patient states,"I went quite a bit."
[2018-11-25 12:33] VITALS: BP 99/59
[2018-11-25 16:00] VITALS: BP 99/49
[2018-11-25 20:00] VITALS: BP 110/62
[2018-11-26] VITALS: BP 107/61
[2018-11-26] MEDS: ULTRAM PO PRN ×4 (00:19→16:12)
[2018-11-26] MEDS: TYLENOL PO SCH ×4 (02:59→21:14)
[2018-11-26] MEDS: ULTRAM PO SCH ×6 (03:49→19:25)
[2018-11-26 04:35] VITALS: BP 103/60
[2018-11-26 05:03] LABS: HEMOGLOBIN 10.6 g/dL (12.0-15.0); MEAN CELL HGB 30.5 pg (26-34); MEAN CELL HGB CONCENTRATION 33.1 g/dL (33-37); MEAN CORP VOLUME 92.2 fL (78-100); MEAN PLATELET VOLUME 9.9 fL (7.8-11.0); RED CELL DISTRIBUTION WIDTH 14.2 % (11.5-14.5); WHITE BLOOD CELL 9.9 10^3/uL (4.5-11.0)
--- NOTE | 2018-11-26 06:51 | NUR ---
REPORT TO VANESSA MCKEE
[2018-11-26 06:53] VITALS: BP 104/60
--- NOTE | 2018-11-26 09:07 | PRM.PN ---
Subjective Subjective Date: Nov 26, 2018 Time: 09:04 Subjective Complains of pain and nausea VSS HGB 10.6 Will check xray Cont with PT Patient History: Asthma V19 CHILD ( A CHILD) Congestive heart failure 32 MOTHER, , Age:70 Diabetes mellitus G8 BROTHER FH: coronary artery bypass surgery 32 MOTHER, , Age:70 G8 BROTHER FH: coronary artery disease 32 MOTHER, , Age:70 G8 BROTHER Hypertension 32 MOTHER, , Age:70 G8 BROTHER No known health problems G8 SISTER V19 CHILD V19 CHILD V19 CHILD No Family History of: Alzheimer's disease Cerebrovascular disorder Chronic obstructive pulmonary disease Diabetes insipidus Parkinson's disease VTE VTE Risk Total Score: 4 VTE Risk Score VTE Risk: Score 0-1 = Low Risk (Aggressive mobilization; early ambulation; no VTE prophylaxis required) Score 2: Moderate Risk (Intermittent/Pneumatic Compression Device OR Lovenox/Heparin/Coumadin) Score 3-4: High Risk (Intermittent/Pneumatic Compression Device AND Lovenox/Heparin/Coumadin) Score > or =5: Highest Risk (Intermittent/Pneumatic Compression Device AND Lovenox/Heparin/Coumadin) Review of Systems Allergies: Coded Allergies: amoxicillin (Verified Allergy, Unknown, WELPS ON THE FACE, 11/20/18) clavulanic acid (Verified Allergy, Unknown, WELPS ON THE FACE, 11/20/18) codeine (Verified Allergy, Unknown, NAUSEA, VOMITING, 05/16/18) Scheduled Cholecalciferol (Vitamin D3) (Vitamin D3), 1 TAB PO BID, (Reported) Cyanocobalamin (Vitamin B-12) (Vitamin B-12), 1 TAB PO DAILY, (Reported) Lansoprazole (Lansoprazole), 1 CAP PO DAILY, (Reported) Metoprolol Succinate (Metoprolol Succinate), 1 TAB PO DAILY, (Reported) Psyllium Seed (Fiber Therapy), 1,368 GM PO BID, (Reported) Vitamin E Mixed (Vitamin E), 100 UNIT PO DAILY24, (Reported) Scheduled PRN Levocetirizine Dihydrochloride (Levocetirizine Dihydrochloride), 1 TAB PO HS PRN for SINUS DRAINAGE, (Reported) Discontinued Medications Ibuprofen (Ibuprofen), 600 MG PO BID PRN for PAIN, (Reported) Discontinued Reason: No Longer Taking Objective Vitals and I/O Vital Sign - Last 24 Hours 11/25/18 11/25/18 11/25/18 11/25/18 11:21 12:33 16:00 20:00 Temp 99.0 99.2 99.0 99.2 Pulse 78 78 Resp 16 16 B/P (MAP) 99/59 (72) 99/49 (66) Pulse Ox 94 93 O2 Delivery Nasal Cannula Room Air Room Air Nasal Cannula O2 Flow Rate 2.00 1.00 11/25/18 11/25/18 11/26/18 11/26/18 20:00 22:50 00:00 04:35 Temp 97.5 98.0 97.4 97.5 98.0 97.4 Pulse 76 77 74 3 Resp 18 18 18 18 B/P (MAP) 110/62 (78) 107/61 (76) 103/60 (74) Pulse Ox 96 94 95 94 O2 Delivery Nasal Canula Nasal Canula Room Air O2 Flow Rate 1.00 2.00 1.00 FiO2 28 11/26/18 11/26/18 06:51 06:53 Temp 98.0 98.0 Pulse 75 Resp 18 B/P (MAP) 104/60 (75) Pulse Ox 90 O2 Delivery Nasal Cannula Room Air O2 Flow Rate 1.00 Intake and Output 11/25/18 11/25/18 11/26/18 15:01 23:01 07:01 Intake Total 960 ml 1000 ml Output Total 1400 ml Balance -440 ml 1000 ml Course Sepsis Screening Results: Posi: NEGATIVE Sepsis Qualifier/Stage: NO DEFINITE RISK Vitals & review Data Vital Sign - Last 24 Hours 11/23/18 11/23/18 11/23/18 11/23/18 08:42 08:42 09:31 09:39 Temp 98.9 98.9 Pulse 72 76 70 Resp 18 18 18 B/P (MAP) 131/70 (90) 132/63 (86) 109/65 (80) Pulse Ox 96 99 99 O2 Delivery Room Air Room Air Nasal Canula Nasal Canula O2 Flow Rate 2 2 11/23/18 11/23/18 11/23/18 11/23/18 09:41 14:48 14:48 15:03 Temp 98.0 98.0 98.0 98.0 Pulse 69 77 72 Resp 18 16 16 B/P (MAP) 107/63 (78) 109/52 (71) 113/66 (82) Pulse Ox 98 98 98 O2 Delivery Nasal Canula Non-Rebreather Non-Rebreather O2 Flow Rate 2 15 15 15 11/23/18 11/23/18 15:18 15:33 Temp 97.6 97.9 97.6 97.9 Pulse 72 77 Resp 18 18 B/P (MAP) 106/59 (75) 111/66 (81) Pulse Ox 96 98 O2 Delivery Nasal Canula Nasal Canula O2 Flow Rate 3 3 Current Medications Medications (Trade) Dose Ordered Sig/Jovanni PRN Reason Start Time Stop Time Status Last Admin Acetaminophen (Tylenol) 1,000 mg Q6H 11/23/18 09:30 12/23/18 09:29 Albuterol Sulfate (Ventolin) 2.5 mg OT PRN WHEEZING 11/23/18 15:30 11/28/18 15:29 Cefazolin Sodium/ Dextrose (Ancef 2 Gm/D5W 50ml) 2 gm Q8 11/23/18 22:00 11/24/18 14:01 UNV Celecoxib (Celebrex) 200 mg BID 11/23/18 21:00 12/23/18 20:59 UNV Celecoxib (Celebrex) 200 mg Q12HR 11/23/18 21:00 11/23/18 21:01 Cholecalciferol (Vitamin D) 5,000 unit BID 11/23/18 21:00 12/23/18 20:59 UNV Cyanocobalamin (Vitamin B-12) 1,000 mcg DAILY 11/24/18 09:00 12/24/18 08:59 UNV Diphenhydramine HCl (Benadryl) 25 mg Q5MIN PRN NAUSEA / VOMITING 11/23/18 15:30 11/28/18 15:29 Docusate Sodium (Colace) 100 mg DAILY 11/24/18 09:00 12/24/18 08:59 UNV Famotidine (Pepcid) 20 mg DAILY 11/24/18 09:00 12/24/18 08:59 UNV Fentanyl Citrate (Sublimaze) 12.5 mcg Q5MIN PRN PAIN 11/23/18 15:30 11/24/18 15:29 11/23/18 15:13 Gabapentin (Neurontin) 400 mg Q24HRS 11/24/18 09:30 11/24/18 09:31 Hydromorphone HCl (Dilaudid) 0.2 mg Q5MIN PRN PAIN MILD 11/23/18 15:30 11/24/18 15:29 Hydromorphone HCl (Dilaudid) 3 mg Q4H PRN PAIN 8-10 11/23/18 15:30 12/23/18 15:29 UNV Metoclopramide HCl (Reglan) 10 mg PRN PRN NAUSEA / VOMITING 11/23/18 15:30 12/23/18 15:29 UNV Metoprolol Succinate (Toprol Xl) 25 mg DAILY 11/24/18 09:00 12/24/18 08:59 UNV Ondansetron HCl (Zofran) 4 mg PRN PRN nv 11/23/18 15:30 11/28/18 15:29 Ondansetron HCl (Zofran) 4 mg Q4H PRN NAUSEA / VOMITING 11/23/18 15:30 12/23/18 15:29 UNV Promethazine HCl (Phenergan) 6.25 mg PRN PRN NAUSEA / VOMITING 11/23/18 15:30 11/28/18 15:29 Rivaroxaban (Xarelto) 10 mg DAILY 11/24/18 09:00 12/24/18 08:59 UNV Throat Lozenges (Cepacol Sore Throat Lozenge) 1 each PRN PRN SORE THROAT 11/23/18 15:30 12/23/18 15:29 UNV Tramadol HCl (Ultram) 50 mg Q4HR 11/23/18 16:00 12/23/18 15:59 UNV Tramadol HCl (Ultram) 100 mg Q4HR PRN SEVERE PAIN 11/23/18 15:30 12/23/18 15:29 UNV Sepsis Infection Criteria Pres: None LEVEL 1 SEPSIS INFECTION CRITE: Recent Invasive Procedure LEVEL 2-SIRS (LIST ALL THAT AP: None/Not assessed Cardiovascular Evidence: Not Assessed or None Hematologic Evidence: None/Not assessed Hepatic Evidence: None/Not assessed Metabolic Evidence: None/Not assessed Neurological Evidence: None/Not assessed Respiratory Evidence: None/Not assessed Renal Evidence: None/Not assessed O2 Sat by Pulse Oximetry: 90 Oxygen Flow Rate: 1.00 JEAN CLAYTON MD Nov 26, 2018 09:07
[2018-11-26] MEDS: TOPROL XL PO SCH (09:32)
[2018-11-26] MEDS: XARELTO PO SCH (09:33)
[2018-11-26] MEDS: VITAMIN B-12 PO SCH (09:33)
[2018-11-26] MEDS: CELEBREX PO SCH ×2 (09:33→21:14)
[2018-11-26] MEDS: COLACE PO SCH (09:33)
[2018-11-26] MEDS: VITAMIN D PO SCH ×2 (09:33→21:14)
[2018-11-26] MEDS: PEPCID PO SCH (09:33)
[2018-11-26] MEDS: CLARITIN PO SCH (09:33)
[2018-11-26] MEDS: PROTONIX PO SCH (09:33)
[2018-11-26] MEDS ORDERED: LANOLIN HYDROUS TP ONE (09:44)
--- NOTE | 2018-11-26 10:11 | DIREP ---
PROCEDURE:XRAY HIP MIN 2VW-RT COMPARISON:[facility], , XRAY HIP MIN 2VW-RT, 11/23/2018, 02:13 PM. INDICATIONS:postop pain FINDINGS: BONES:Right hip arthroplasty. No visible fracture. JOINTS:No visible dislocation. SOFT TISSUES:Lateral skin jeff, wound VAC. OTHER:No additional findings. CONCLUSION:No acute osseous findings status post arthroplasty. Dictated by: Artemio Garcia M.D. on 11/26/2018 at 10:06 AM
--- NOTE | 2018-11-26 13:00 | NUR ---
ASSISTED PATIENT TO AMBULATE AT THIS TIME.
[2018-11-26 13:53] VITALS: BP 88/58
--- NOTE | 2018-11-26 15:41 | NUR ---
PATIENT AMBULATING IN HALLWAY AT THIS TIME.
--- NOTE | 2018-11-26 16:00 | NUR ---
CHANGE IN DISCHARGE PLAN Mira EMMANUEL RN MED SURG DIRECTOR NOTIFIED CM DEPARTMENT AND STATED THAT PATIENT HAD CHANGED HER FIND IN PHYSICAL THERAPY SERVICE. PATIENT LIVES IN [place] AND STATED THAT SHE WANTED TO GO OUT PATIENT @ [facility] FOR HER CONTINUED PHYSIAL THERAPY NEEDS PER ACCOMMODATION. FOLLOW UP VISIT MADE TO PATIENT REGARDING ABOVE DOCUMENTATION WITH PATIENT IN AGREEMENT. CM DEPARTMENT THEN FAXED ALL PATIENT APPLICABLE CLINICAL INFORMATION TO [facility] @ [phone] REQUEST. PATIENTS APPOINTMENT TIME IS Monday11/29/18 @ 1400. PATIENTS DISCHARGE INSTRUCTIONS UPDATED TO REFLECT. CM DEPARTMENT ALSO REINFORCED EDUCATION REGARDING PATIENTS WALKER VERSES HOME COMFORT ADVISOR WITH [employer] UNDERSTANDING AND TEACH BACK INSTRUCTION THAT PATIENT AND HER WOULD GO BY [facility] AFTER DISCHARGE AND HOME COMFORT ADVISOR WALKER DUE TO [facility] NOT DELIVERING. NO FURTHER CM OR DISCHARGE NEEDS KNOWN @ THIS TIME.
[2018-11-26 16:18] VITALS: BP 108/60
[2018-11-26 19:30] VITALS: BP 90/54
[2018-11-27] MEDS: ULTRAM PO SCH ×4 (00:09→11:45)
[2018-11-27 00:15] VITALS: BP 101/65
[2018-11-27] MEDS: TYLENOL PO SCH ×2 (03:24→10:20)
[2018-11-27 04:00] VITALS: BP 89/50
[2018-11-27 05:19] LABS: MEAN CELL HGB 30.5 pg (26-34); MEAN CORP VOLUME 92.4 fL (78-100); MEAN PLATELET VOLUME 9.9 fL (7.8-11.0); RED CELL DISTRIBUTION WIDTH 14.2 % (11.5-14.5); WHITE BLOOD CELL 9.7 10^3/uL (4.5-11.0)
--- NOTE | 2018-11-27 06:39 | NUR ---
REPORT TO ELVA ALY
[2018-11-27 07:24] VITALS: BP 100/56
[2018-11-27] MEDS: CELEBREX PO SCH (08:33)
[2018-11-27] MEDS: COLACE PO SCH (08:33)
[2018-11-27] MEDS: XARELTO PO SCH (08:34)
[2018-11-27] MEDS: PROTONIX PO SCH (08:34)
[2018-11-27] MEDS: VITAMIN B-12 PO SCH (08:34)
[2018-11-27] MEDS: VITAMIN D PO SCH (08:34)
[2018-11-27] MEDS: CLARITIN PO SCH (08:34)
[2018-11-27] MEDS: PEPCID PO SCH (08:34)
[2018-11-27] MEDS: TOPROL XL PO SCH (08:34)
--- NOTE | 2018-11-27 10:16 | PRM.PN ---
Subjective Subjective Date: Nov 27, 2018 Time: 10:13 Subjective Pain better today ambulatory with walker HGB 10 stable Xrays negative for any fxs Will dc Patient History: Asthma V19 CHILD ( A CHILD) Congestive heart failure 32 MOTHER, , Age:70 Diabetes mellitus G8 BROTHER FH: coronary artery bypass surgery 32 MOTHER, , Age:70 G8 BROTHER FH: coronary artery disease 32 MOTHER, , Age:70 G8 BROTHER Hypertension 32 MOTHER, , Age:70 G8 BROTHER No known health problems G8 SISTER V19 CHILD V19 CHILD V19 CHILD No Family History of: Alzheimer's disease Cerebrovascular disorder Chronic obstructive pulmonary disease Diabetes insipidus Parkinson's disease VTE VTE Risk Total Score: 4 VTE Risk Score VTE Risk: Score 0-1 = Low Risk (Aggressive mobilization; early ambulation; no VTE prophylaxis required) Score 2: Moderate Risk (Intermittent/Pneumatic Compression Device OR Lovenox/Heparin/Coumadin) Score 3-4: High Risk (Intermittent/Pneumatic Compression Device AND Lovenox/Heparin/Coumadin) Score > or =5: Highest Risk (Intermittent/Pneumatic Compression Device AND Lovenox/Heparin/Coumadin) Review of Systems Allergies: Coded Allergies: amoxicillin (Verified Allergy, Unknown, WELPS ON THE FACE, 11/20/18) clavulanic acid (Verified Allergy, Unknown, WELPS ON THE FACE, 11/20/18) codeine (Verified Allergy, Unknown, NAUSEA, VOMITING, 05/16/18) Scheduled Cholecalciferol (Vitamin D3) (Vitamin D3), 1 TAB PO BID, (Reported) Cyanocobalamin (Vitamin B-12) (Vitamin B-12), 1 TAB PO DAILY, (Reported) Lansoprazole (Lansoprazole), 1 CAP PO DAILY, (Reported) Metoprolol Succinate (Metoprolol Succinate), 1 TAB PO DAILY, (Reported) Psyllium Seed (Fiber Therapy), 1,368 GM PO BID, (Reported) Vitamin E Mixed (Vitamin E), 100 UNIT PO DAILY24, (Reported) Scheduled PRN Levocetirizine Dihydrochloride (Levocetirizine Dihydrochloride), 1 TAB PO HS PRN for SINUS DRAINAGE, (Reported) Objective Vitals and I/O Vital Sign - Last 24 Hours 11/26/18 11/26/18 11/26/18 11/26/18 10:54 10:56 13:53 16:18 Temp 98.0 97.9 98.0 97.9 Pulse 82 82 79 Resp 18 18 18 18 B/P (MAP) 88/58 (68) 108/60 (76) Pulse Ox 94 94 90 O2 Delivery Nasal Cannula Room Air Room Air FiO2 21 11/26/18 11/26/18 11/26/18 11/26/18 19:30 19:30 21:02 21:04 Temp 98.4 98.4 Pulse 76 78 80 Resp 18 12 16 B/P (MAP) 90/54 (66) Pulse Ox 98 96 96 O2 Delivery Room Air Room Air Nasal Cannula Room Air O2 Flow Rate 2.00 FiO2 28 21 11/27/18 11/27/18 11/27/18 00:15 04:00 07:24 Temp 98.2 98.4 98.5 98.2 98.4 98.5 Pulse 80 71 74 Resp 18 18 18 B/P (MAP) 101/65 (77) 89/50 (63) 100/56 (71) Pulse Ox 95 94 91 O2 Delivery Room Air Room Air Room Air Intake and Output 11/26/18 11/26/18 11/27/18 15:01 23:01 07:01 Intake Total 120 ml 120 ml Balance 120 ml 120 ml All Results(Lab/Rad) Laboratory Tests Test 11/27/18 04:51 White Blood Count 9.7 10^3/uL Red Blood Count 3.28 10^6/uL Hemoglobin 10.0 g/dL Hematocrit 30.3 % Mean Corpuscular Volume 92.4 fL Mean Corpuscular Hemoglobin 30.5 pg Mean Corpuscular Hemoglobin Concent 33.0 g/dL Red Cell Distribution Width 14.2 % Platelet Count 185 10^3/uL Mean Platelet Volume 9.9 fL Current Medications Medications (Trade) Dose Ordered Sig/Jovanni Route PRN Reason Start Time Stop Time Status Last Admin Dose Admin Sodium Chloride 250 ml @ ud STK-MED ONCE IV 11/23/18 05:18 11/23/18 05:21 DC Cefazolin Sodium (Ancef) 1 gm STK-MED ONCE .ROUTE 11/23/18 05:19 11/23/18 05:22 DC Neostigmine Methylsulfate (Neostigmine) 10 mg STK-MED ONCE .ROUTE 11/23/18 06:47 11/23/18 06:51 DC Ondansetron HCl (Zofran) 4 mg STK-MED ONCE .ROUTE 11/23/18 06:48 11/23/18 06:51 DC Ketorolac Tromethamine (Toradol) 30 mg STK-MED ONCE .ROUTE 11/23/18 06:48 11/23/18 06:51 DC Rocuronium Clovis (Zemuron) 100 mg STK-MED ONCE IV 11/23/18 06:48 11/23/18 06:51 DC Hydromorphone HCl (Dilaudid) 2 mg STK-MED ONCE .ROUTE 11/23/18 06:48 11/23/18 06:52 DC Midazolam HCl (Versed) 1 mg STK-MED ONCE .ROUTE 11/23/18 06:48 11/23/18 06:52 DC Fentanyl Citrate (Sublimaze) 100 mcg STK-MED ONCE .ROUTE 11/23/18 06:48 11/23/18 06:52 DC Propofol (Diprivan) 200 mg STK-MED ONCE IV 11/23/18 06:49 11/23/18 06:52 DC Dexamethasone Sodium Phosphate (Decadron) 20 mg STK-MED ONCE .ROUTE 11/23/18 06:49 11/23/18 06:53 DC Bupivacaine HCl (Sensorcaine 0.5% Vial) 5 mg STK-MED ONCE .ROUTE 11/23/18 06:49 11/23/18 06:53 DC Dexmedetomidine HCl (Precedex) 200 mcg STK-MED ONCE IV 11/23/18 06:50 11/23/18 06:54 DC Lidocaine HCl (Lidocaine 2% Vial) 500 mg STK-MED ONCE .ROUTE 11/23/18 07:00 11/23/18 07:04 DC Sodium Chloride 300 ml @ ud STK-MED ONCE IV 11/23/18 08:00 11/23/18 08:03 DC Sodium Chloride 250 ml @ ud STK-MED ONCE IV 11/23/18 08:00 11/23/18 08:03 DC Sodium Chloride (NS 3000ml Irr) 3,000 ml STK-MED ONCE IR 11/23/18 08:00 11/23/18 08:04 DC Sodium Chloride (Sodium Chloride) 1,000 ml STK-MED ONCE IR 11/23/18 08:00 11/23/18 08:04 DC Tranexamic Acid (Tranexamic Acid) 1,000 mg STK-MED ONCE IV 11/23/18 08:06 11/23/18 08:10 DC Acetaminophen (Tylenol) 1,000 mg OT PO 11/23/18 09:30 11/23/18 09:31 DC 11/23/18 09:19 Gabapentin (Neurontin) 400 mg OT PO 11/23/18 09:30 11/23/18 09:31 DC 11/23/18 09:18 Acetaminophen (Tylenol) 1,000 mg Q6H PO 11/23/18 09:30 12/23/18 09:29 11/27/18 03:24 Celecoxib (Celebrex) 200 mg Q12HR PO 11/23/18 21:00 11/23/18 21:00 DC Gabapentin (Neurontin) 400 mg Q24HRS PO 11/24/18 09:30 11/24/18 09:31 DC 11/24/18 10:29 Scopolamine (Transderm-Scop) 1 each STK-MED ONCE TD 11/23/18 09:43 11/23/18 09:44 DC Rocuronium Clovis (Rocuronium Clovis) 50 mg STK-MED ONCE IV 11/23/18 14:56 11/23/18 15:00 DC Ephedrine Sulfate (Ephedrine Sulfate) 50 mg STK-MED ONCE .ROUTE 11/23/18 14:56 11/23/18 15:00 DC Hydromorphone HCl (Dilaudid) 0.2 mg Q5MIN PRN IV PAIN MILD 11/23/18 15:30 11/24/18 15:29 DC Fentanyl Citrate (Sublimaze) 12.5 mcg Q5MIN PRN IV PAIN 11/23/18 15:30 11/24/18 09:42 DC 11/23/18 15:13 Ondansetron HCl (Zofran) 4 mg PRN PRN IV nv 11/23/18 15:30 11/23/18 16:20 DC Promethazine HCl (Phenergan) 6.25 mg PRN PRN IV NAUSEA / VOMITING 11/23/18 15:30 11/28/18 15:29 Diphenhydramine HCl (Benadryl) 25 mg Q5MIN PRN IV NAUSEA / VOMITING 11/23/18 15:30 11/28/18 15:29 Albuterol Sulfate (Ventolin) 2.5 mg OT PRN IH WHEEZING 11/23/18 15:30 11/28/18 15:29 Tramadol HCl (Ultram) 50 mg Q4HR PO 11/23/18 16:00 12/23/18 15:59 11/27/18 08:33 Tramadol HCl (Ultram) 100 mg Q4HR PRN PO SEVERE PAIN 11/23/18 15:30 12/23/18 15:29 11/26/18 16:12 Rivaroxaban (Xarelto) 10 mg DAILY PO 11/24/18 09:00 12/24/18 08:59 11/27/18 08:34 Docusate Sodium (Colace) 100 mg DAILY PO 11/24/18 09:00 12/24/18 08:59 11/27/18 08:33 Throat Lozenges (Cepacol Sore Throat Lozenge) 1 each PRN PRN MM SORE THROAT 11/23/18 15:30 12/23/18 15:29 11/24/18 10:26 Famotidine (Pepcid) 20 mg DAILY PO 11/24/18 09:00 12/24/18 08:59 11/27/18 08:34 Metoclopramide HCl (Reglan) 10 mg PRN PRN IV NAUSEA / VOMITING 11/23/18 15:30 12/23/18 15:29 11/25/18 13:29 Celecoxib (Celebrex) 200 mg BID PO 11/23/18 21:00 12/23/18 20:59 11/27/18 08:33 Cefazolin Sodium/ Dextrose (Ancef 2 Gm/D5W 50ml) 2 gm Q8 IV 11/23/18 22:00 11/23/18 22:00 DC Hydromorphone HCl (Dilaudid) 3 mg Q4H PRN IV PAIN 8-10 11/23/18 15:30 12/23/18 15:29 11/25/18 10:07 Ondansetron HCl (Zofran) 4 mg Q4H PRN IV NAUSEA / VOMITING 11/23/18 15:30 12/23/18 15:29 11/25/18 10:07 Cholecalciferol (Vitamin D) 5,000 unit BID PO 11/23/18 21:00 12/23/18 20:59 11/27/18 08:34 Cyanocobalamin (Vitamin B-12) 1,000 mcg DAILY PO 11/24/18 09:00 12/24/18 08:59 11/27/18 08:34 Metoprolol Succinate (Toprol Xl) 25 mg DAILY PO 11/24/18 09:00 12/24/18 08:59 11/27/18 08:34 Pantoprazole Sodium (Protonix) 40 mg DAILY PO 11/24/18 09:00 12/24/18 08:59 11/27/18 08:34 Loratadine (Claritin) 10 mg DAILY PO 11/24/18 09:00 12/24/18 08:59 11/27/18 08:34 Cefazolin Sodium/ Dextrose 50 ml @ 100 mls/hr Q8 IV 11/23/18 22:00 11/24/18 14:29 DC 11/24/18 14:44 Lanolin (Lanolin Hydrous) 28 gm STK-MED ONCE TP 11/26/18 09:44 11/26/18 09:47 DC Course Sepsis Screening Results: Posi: NEGATIVE Sepsis Qualifier/Stage: NO DEFINITE RISK Vitals & review Data Vital Sign - Last 24 Hours 11/23/18 11/23/18 11/23/18 11/23/18 08:42 08:42 09:31 09:39 Temp 98.9 98.9 Pulse 72 76 70 Resp 18 18 18 B/P (MAP) 131/70 (90) 132/63 (86) 109/65 (80) Pulse Ox 96 99 99 O2 Delivery Room Air Room Air Nasal Canula Nasal Canula O2 Flow Rate 2 2 11/23/18 11/23/18 11/23/18 11/23/18 09:41 14:48 14:48 15:03 Temp 98.0 98.0 98.0 98.0 Pulse 69 77 72 Resp 18 16 16 B/P (MAP) 107/63 (78) 109/52 (71) 113/66 (82) Pulse Ox 98 98 98 O2 Delivery Nasal Canula Non-Rebreather Non-Rebreather O2 Flow Rate 2 15 15 15 11/23/18 11/23/18 15:18 15:33 Temp 97.6 97.9 97.6 97.9 Pulse 72 77 Resp 18 18 B/P (MAP) 106/59 (75) 111/66 (81) Pulse Ox 96 98 O2 Delivery Nasal Canula Nasal Canula O2 Flow Rate 3 3 Current Medications Medications (Trade) Dose Ordered Sig/Jovanni PRN Reason Start Time Stop Time Status Last Admin Acetaminophen (Tylenol) 1,000 mg Q6H 11/23/18 09:30 12/23/18 09:29 Albuterol Sulfate (Ventolin) 2.5 mg OT PRN WHEEZING 11/23/18 15:30 11/28/18 15:29 Cefazolin Sodium/ Dextrose (Ancef 2 Gm/D5W 50ml) 2 gm Q8 11/23/18 22:00 11/24/18 14:01 UNV Celecoxib (Celebrex) 200 mg BID 11/23/18 21:00 12/23/18 20:59 UNV Celecoxib (Celebrex) 200 mg Q12HR 11/23/18 21:00 11/23/18 21:01 Cholecalciferol (Vitamin D) 5,000 unit BID 11/23/18 21:00 12/23/18 20:59 UNV Cyanocobalamin (Vitamin B-12) 1,000 mcg DAILY 11/24/18 09:00 12/24/18 08:59 UNV Diphenhydramine HCl (Benadryl) 25 mg Q5MIN PRN NAUSEA / VOMITING 11/23/18 15:30 11/28/18 15:29 Docusate Sodium (Colace) 100 mg DAILY 11/24/18 09:00 12/24/18 08:59 UNV Famotidine (Pepcid) 20 mg DAILY 11/24/18 09:00 12/24/18 08:59 UNV Fentanyl Citrate (Sublimaze) 12.5 mcg Q5MIN PRN PAIN 11/23/18 15:30 11/24/18 15:29 11/23/18 15:13 Gabapentin (Neurontin) 400 mg Q24HRS 11/24/18 09:30 11/24/18 09:31 Hydromorphone HCl (Dilaudid) 0.2 mg Q5MIN PRN PAIN MILD 11/23/18 15:30 11/24/18 15:29 Hydromorphone HCl (Dilaudid) 3 mg Q4H PRN PAIN 8-10 11/23/18 15:30 12/23/18 15:29 UNV Metoclopramide HCl (Reglan) 10 mg PRN PRN NAUSEA / VOMITING 11/23/18 15:30 12/23/18 15:29 UNV Metoprolol Succinate (Toprol Xl) 25 mg DAILY 11/24/18 09:00 12/24/18 08:59 UNV Ondansetron HCl (Zofran) 4 mg PRN PRN nv 11/23/18 15:30 11/28/18 15:29 Ondansetron HCl (Zofran) 4 mg Q4H PRN NAUSEA / VOMITING 11/23/18 15:30 12/23/18 15:29 UNV Promethazine HCl (Phenergan) 6.25 mg PRN PRN NAUSEA / VOMITING 11/23/18 15:30 11/28/18 15:29 Rivaroxaban (Xarelto) 10 mg DAILY 11/24/18 09:00 12/24/18 08:59 UNV Throat Lozenges (Cepacol Sore Throat Lozenge) 1 each PRN PRN SORE THROAT 11/23/18 15:30 12/23/18 15:29 UNV Tramadol HCl (Ultram) 50 mg Q4HR 11/23/18 16:00 12/23/18 15:59 UNV Tramadol HCl (Ultram) 100 mg Q4HR PRN SEVERE PAIN 11/23/18 15:30 12/23/18 15:29 UNV Sepsis Infection Criteria Pres: None LEVEL 1 SEPSIS INFECTION CRITE: Recent Invasive Procedure LEVEL 2-SIRS (LIST ALL THAT AP: None/Not assessed Cardiovascular Evidence: Not Assessed or None Hematologic Evidence: None/Not assessed Hepatic Evidence: None/Not assessed Metabolic Evidence: None/Not assessed Neurological Evidence: None/Not assessed Respiratory Evidence: None/Not assessed Renal Evidence: None/Not assessed O2 Sat by Pulse Oximetry: 91 Oxygen Flow Rate: 2.00 JEAN CLAYTON MD Nov 27, 2018 10:16
--- NOTE | 2018-11-27 10:35 | DSH ---
DATE OF DISCHARGE: 11/27/2018 ADMITTING DIAGNOSIS: Osteoarthritis of the right hip. OTHER DIAGNOSES: Include hypertension as well as obesity. DISCHARGE DIAGNOSES: Osteoarthritis of the right hip and postoperative anemia secondary to surgical blood loss expected. CONSULTATIONS: None. COMPLICATIONS: None. SUMMARY OF ADMISSION: The patient is a 58-year-old female with intractable right hip pain for several months secondary to osteoarthritis. She had temporary relief from an intraarticular cortisone injection. She is no better with anti-inflammatories or home exercise program. The x-rays show that she is [id number] about the right hip and therefore, she was taken to the operating room for right total hip arthroplasty. The patient's procedure was performed on 11/23/2018. Postoperatively, the patient has done well. She has had daily physical therapy and occupational therapy. On discharge, she can transfer independently in and out of her bed. She is ambulatory with a walker 50% weightbearing on the right. Her neurovascular exam was normal. She is on a regular diet. Hemoglobin dropped to a low of 10, but has remained stable. Her vital signs have remained stable. The patient will be discharged today on 11/27/2018. She will be instructed to use her walker and 50% weightbearing on the right. She will be asked to take aspirin 81 mg twice a day for a month for DVT prophylaxis. She will be given a prescription for tramadol for the pain. She will see in my office tomorrow. Archie Paez MD DR: [facility] JOB# [id number]
[2018-11-27] MEDS ORDERED: ASPI-655 PO (11:49)
[2018-11-27] MEDS ORDERED: TRAM50TA PO (11:51)
[2018-11-27 12:17] VITALS: BP 116/54
[2018-11-27 12:48] VITALS: BP 116/54
== END 2018-11-27 12:52 | disposition home or self-care (01) | DRG 470 ==
LOC: MS 04:40 → EDPENDDISTM 11-27 12:49
PROVIDERS: ADMIT Orthopaedic Surgery; ATTEND Orthopaedic Surgery
PROC: 0SR904A Replacement of Right Hip Joint with Ceramic on Polyethylene Synthetic Substitute, Uncemented, Open Approach (ICD-10-PCS; principal; 2018-11-23 10:59)
DX: M16.11 Unilateral primary osteoarthritis, right hip (principal); D62 Acute posthemorrhagic anemia; I10 Essential (primary) hypertension; E66.9 Obesity, unspecified; Z98.51 Tubal ligation status; Z90.710 Acquired absence of both cervix and uterus; Z88.1 Allergy status to other antibiotic agents; Z88.5 Allergy status to narcotic agent; Z88.8 Allergy status to other drugs, medicaments and biological substances; Z82.49 Family history of ischemic heart disease and other diseases of the circulatory system; Z83.3 Family history of diabetes mellitus; Z68.37 Body mass index [BMI] 37.0-37.9, adult
CPT/HCPCS: 36415; 64447; 73502; 76000; 80053; 81002; 85025; 85027; 87070; 93005; 97161; 97166; A4217; G0378; J0690; J1100; J1170; J1885; J2001; J2250; J2405; J2710; J2765; J3010; J3490; J7050; J7120; 97110-GP; 97116-GP; 97530-GP; 97535-GO; C1776; J8499

== ENCOUNTER 2018-11-30 11:45 | Inpatient (IN) | payer BC ==
[~2018-11-30] VITALS: Ht 165.1 cm; Wt 102.3 kg
[~2018-11-30 11:45] MED LIST changes: +ASPI-655 PO; +LANS30CA PO; +LEVO5TAB2 PO; +TRAM50TA PO
[2018-11-30 13:23] LABS: BASOPHIL % 0.3 % (0.0-0.2); EOSINOPHIL # 0.3 10^3/uL (0.0-0.2); EOSINOPHIL % 2.4 % (0.0-5.0); HEMOGLOBIN 11.7 g/dL (12.0-15.0); LYMPHOCYTES # 1.3 10^3/uL (1.0-4.8); LYMPHOCYTES % 12.7 % (24.0-44.0); MEAN CELL HGB 30.4 pg (26-34); MEAN CELL HGB CONCENTRATION 33.3 g/dL (33-37); MEAN CORP VOLUME 91.2 fL (78-100); MEAN PLATELET VOLUME 9.1 fL (7.8-11.0); MONOCYTES # 0.7 10^3/uL (0.3-0.8); MONOCYTES % 7.1 % (5.0-12.0); NEUTROPHILS % 76.9 % (41.0-85.0); RED CELL DISTRIBUTION WIDTH 14.5 % (11.5-14.5); WHITE BLOOD CELL 10.4 10^3/uL (4.5-11.0)
[2018-11-30] MEDS ORDERED: ZOFRAN ONE (13:26)
[2018-11-30] MEDS: ZOFRAN IV PRN (13:41)
[2018-11-30] MEDS: LACTATED RINGERS 1,000 ML IV SCH (13:41)
[2018-11-30 13:46] LABS: CARBON DIOXIDE 28.5 mmol/L (20.0-32)
--- NOTE | 2018-11-30 14:11 | PCM.EKG ---
[facility] Test Date: 2018-11-30 Test Time: 14:05:17 Pat Name: NORA JULIAN Department: Room: 333 A Gender: F Security Tech: KAYLEIGH : 1960 Requested By: JEAN CLAYTON Order Number: [id number] Reading MD: Chuck Young Measurements Intervals [place] Rate: 67 P: 43 OR: 160 QRS: 44 QRSD: 102 T: 27 QT: 406 QTc: 429 Interpretive Statements Normal sinus rhythm Normal ECG Compared to ECG 11/19/2018 16:33:15 ST (T wave) deviation no longer present Electronically Signed On 12-02-2018 15:49:42 CHIMNEY REPAIRER by Chuck Young Please click the below link to view image of tracing.
[2018-11-30] MEDS ORDERED: MAGNESIUM CITRATE PO STA (14:31)
--- NOTE | 2018-11-30 14:49 | HPH ---
ADMIT DATE: 11/30/2018 HISTORY OF PRESENT ILLNESS: The patient is a 58-year-old female that is 1 week status post right total hip arthroplasty for osteoarthritis. The patient was seen in my office yesterday where her Prevena dressing was removed. At that time, the patient's wound was benign, had no drainage, no redness. The patient was seen back in the office this morning having serous type drainage from the inferior portion of the wound. She was also complained of nausea and vomiting. The patient denied any fever or chills. MEDICATIONS: Metoprolol, Flexeril, ibuprofen, tramadol. PAST MEDICAL HISTORY: Hypertension, obesity, osteoarthritis. PREVIOUS SURGICAL PROCEDURES: Right total hip arthroplasty, back surgery, tubal ligation, hysterectomy, colonoscopy, herniorrhaphy. ALLERGIES: CODEINE. SOCIAL HISTORY: The patient is . She does not smoke or drink. 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 FAMILY HISTORY: Positive for diabetes, coronary artery disease, renal failure, cancer. REVIEW OF SYSTEMS: Positive for constipation as well as nausea and vomiting over the last several days. Negative for chest pain, shortness of breath, fever, chills or weight loss. PHYSICAL EXAMINATION: GENERAL: Shows that the patient is 5 feet 5 inches tall, weighs 225 pounds. Healthy white female in no acute distress. HEENT: Within normal limits. CHEST: Clear to auscultation. HEART: Regular rate and rhythm, no murmur. ABDOMEN: Soft and nontender. EXTREMITIES: The patient's right hip has a stapled incision. There is no redness. She has some serous drainage from the inferior portion of the wound; however, there is no feeling of fluctuance. She also has a tape blister just distal to the incision line and posteriorly. The neurological exam shows that the patient is awake and alert. She is oriented x 3. Her cranial nerves 2-12 are grossly intact. She has 5/5 strength in all muscle groups except the right hip limited by pain. ASSESSMENT: 1. Right hip wound complication. 2. Osteoarthritis. 3. Obesity. 4. Hypertension. PLAN: The patient is going to be admitted and placed on IV antibiotics. We will address her constipation issues. The patient's wound drainage will be monitored. If it does not slow quickly, we will proceed with incision and drainage of the wound. Archie Paez MD DR: [facility] JOB# [id number]
[2018-11-30] MEDS ORDERED: ULTRAM PO PRN (15:00)
[2018-11-30] MEDS ORDERED: LACTATED RINGERS 1,000 ML IV SCH (15:00)
[2018-11-30] MEDS ORDERED: ASPIRIN EC PO SCH (15:00)
--- NOTE | 2018-11-30 15:00 | NUR ---
admit Assumed care of patient when she arrived to the floor as a direct admit. See admit as documented.
[2018-11-30] MEDS: REGLAN IV SCH ×2 (15:11→21:07)
[2018-11-30] MEDS: ANCEF 3 GM in NS 100ML 100 ML IV SCH ×2 (15:11→21:08)
[2018-11-30] MEDS: ULTRAM PO PRN (15:12)
[2018-11-30 19:38] VITALS: BP 106/63
[2018-11-30] MEDS: ASPIRIN EC PO SCH (21:07)
[2018-11-30] MEDS: VITAMIN D PO SCH (21:08)
[2018-12-01] VITALS: BP 91/60
[2018-12-01] MEDS: TORADOL IV PRN ×3 (00:44→19:46)
[2018-12-01] MEDS: LACTATED RINGERS 1,000 ML IV SCH ×2 (00:44→12:54)
--- NOTE | 2018-12-01 00:44 | NUR ---
toradol 30mg iv given for pain
[2018-12-01 05:10] VITALS: BP 90/53
[2018-12-01] MEDS: ANCEF 3 GM in NS 100ML 100 ML IV SCH ×3 (05:19→22:00)
--- NOTE | 2018-12-01 06:20 | NUR ---
REPORT TO SILVIA ALY
[2018-12-01 07:54] VITALS: BP 102/62
[2018-12-01] MEDS: TOPROL XL PO SCH (09:00)
[2018-12-01] MEDS: PROTONIX PO SCH (09:00)
[2018-12-01] MEDS: REGLAN IV SCH (09:04)
[2018-12-01] MEDS: VITAMIN D PO SCH ×2 (09:04→20:00)
[2018-12-01] MEDS: COLACE PO SCH (09:04)
[2018-12-01] MEDS: PEPCID PO SCH (09:04)
[2018-12-01] MEDS: ASPIRIN EC PO SCH ×2 (09:04→20:00)
[2018-12-01] MEDS: CLARITIN PO SCH (09:04)
[2018-12-01] MEDS: VITAMIN B-12 PO SCH (09:05)
[2018-12-01 11:00] VITALS: BP 99/59
[2018-12-01 16:04] VITALS: BP 100/57
--- NOTE | 2018-12-01 16:21 | NUR ---
Activity Patient up to ambulate with RN X2, able to go 250ft + each time. Tolerated activity well.
--- NOTE | 2018-12-01 19:48 | NUR ---
Report Report given to Montserrat INTEGRATION PROJECT MANAGER at shift change.
[2018-12-01 19:53] VITALS: BP 100/57
[2018-12-02 00:36] VITALS: BP 119/60
[2018-12-02] MEDS: LACTATED RINGERS 1,000 ML IV SCH ×3 (03:31→21:58)
[2018-12-02] MEDS: ANCEF 3 GM in NS 100ML 100 ML IV SCH ×3 (05:39→21:59)
[2018-12-02 05:47] VITALS: BP 119/66
[2018-12-02] MEDS ORDERED: LANOLIN HYDROUS TP ONE (06:00)
[2018-12-02] MEDS: TORADOL IV PRN (06:27)
--- NOTE | 2018-12-02 06:56 | NUR ---
REPORT REPORT RECEIVED FROM FRIDA MCKEE ASSUMED CARE OF PT
[2018-12-02 09:06] VITALS: BP 123/63
[2018-12-02] MEDS: COLACE PO SCH (09:26)
[2018-12-02] MEDS: ASPIRIN EC PO SCH (09:26)
[2018-12-02] MEDS: TOPROL XL PO SCH (09:26)
[2018-12-02] MEDS: PROTONIX PO SCH (09:26)
[2018-12-02] MEDS: CLARITIN PO SCH (09:26)
[2018-12-02] MEDS: PEPCID PO SCH (09:26)
[2018-12-02] MEDS: VITAMIN D PO SCH ×2 (09:26→21:57)
[2018-12-02] MEDS: VITAMIN B-12 PO SCH (09:27)
--- NOTE | 2018-12-02 10:22 | PRM.PN ---
Subjective Subjective Date: Dec 02, 2018 Time: 10:18 Subjective Pain better the am Had BM N/V much better Minimal drainage from wound vac Cont with IV Ancef Minimal pain this am Afebrile VSS Has 40cc of drainage out this am Stop ASA Cont with IV ancef Reevaluate later today Patient History: Asthma V19 CHILD ( A CHILD) Congestive heart failure 32 MOTHER, , Age:70 Diabetes mellitus G8 BROTHER FH: coronary artery bypass surgery 32 MOTHER, , Age:70 G8 BROTHER FH: coronary artery disease 32 MOTHER, , Age:70 G8 BROTHER Hypertension 32 MOTHER, , Age:70 G8 BROTHER No known health problems G8 SISTER V19 CHILD V19 CHILD V19 CHILD No Family History of: Alzheimer's disease Cerebrovascular disorder Chronic obstructive pulmonary disease Diabetes insipidus Parkinson's disease VTE VTE Risk Total Score: >5 VTE Risk Score VTE Risk: Score 0-1 = Low Risk (Aggressive mobilization; early ambulation; no VTE prophylaxis required) Score 2: Moderate Risk (Intermittent/Pneumatic Compression Device OR Lovenox/Heparin/Coumadin) Score 3-4: High Risk (Intermittent/Pneumatic Compression Device AND Lovenox/Heparin/Coumadin) Score > or =5: Highest Risk (Intermittent/Pneumatic Compression Device AND Lovenox/Heparin/Coumadin) Review of Systems Allergies: Coded Allergies: amoxicillin (Verified Allergy, Unknown, WELPS ON THE FACE, 11/30/18) clavulanic acid (Verified Allergy, Unknown, WELPS ON THE FACE, 11/30/18) codeine (Verified Allergy, Unknown, NAUSEA, VOMITING, 11/30/18) Scheduled Aspirin (Aspirin Ec), 1 TAB PO DAILY24, (Reported) Cholecalciferol (Vitamin D3) (Vitamin D3), 1 TAB PO BID, (Reported) Cyanocobalamin (Vitamin B-12) (Vitamin B-12), 1 TAB PO DAILY, (Reported) Lansoprazole (Lansoprazole), 1 CAP PO DAILY, (Reported) Metoprolol Succinate (Metoprolol Succinate), 1 TAB PO DAILY, (Reported) Psyllium Seed (Fiber Therapy), 1,368 GM PO BID, (Reported) Tramadol Hcl (Tramadol Hcl), 1-2 TAB PO Q6HR, (Reported) Scheduled PRN Levocetirizine Dihydrochloride (Levocetirizine Dihydrochloride), 1 TAB PO HS PRN for SINUS DRAINAGE, (Reported) Discontinued Medications Vitamin E Mixed (Vitamin E), 100 UNIT PO DAILY24, (Reported) Discontinued Reason: HOLD Objective Vitals and I/O Vital Sign - Last 24 Hours 11/30/18 11/30/18 11/30/18 11/30/18 12:00 14:42 17:08 19:30 Pulse 82 Resp 17 Pulse Ox 96 O2 Delivery Room Air Room Air Room Air Room Air 11/30/18 11/30/18 12/01/18 12/01/18 19:38 20:44 00:00 05:10 Temp 98.5 98.3 99.1 98.5 98.3 99.1 Pulse 72 78 91 94 Resp 18 16 18 18 B/P (MAP) 106/63 (77) 91/60 (70) 90/53 (65) Pulse Ox 92 94 90 94 O2 Delivery Room Air Room Air Room Air Room Air FiO2 21 12/01/18 12/01/18 12/01/18 07:54 09:15 09:32 Temp 98.6 98.6 Pulse 94 94 Resp 18 18 B/P (MAP) 102/62 (75) Pulse Ox 94 94 O2 Delivery Vent Room Air Room Air FiO2 21 Intake and Output 11/30/18 11/30/18 12/01/18 15:01 23:01 07:01 Intake Total 1500 ml Output Total 2 ml Balance -2 ml 1500 ml All Results(Lab/Rad) Laboratory Tests Test 11/30/18 13:15 White Blood Count 10.4 10^3/uL Red Blood Count 3.85 10^6/uL Hemoglobin 11.7 g/dL Hematocrit 35.1 % Mean Corpuscular Volume 91.2 fL Mean Corpuscular Hemoglobin 30.4 pg Mean Corpuscular Hemoglobin Concent 33.3 g/dL Red Cell Distribution Width 14.5 % Platelet Count 316 10^3/uL Mean Platelet Volume 9.1 fL Neutrophils (%) (Auto) 76.9 % Lymphocytes (%) (Auto) 12.7 % Monocytes (%) (Auto) 7.1 % Neutrophils # (Auto) 8.0 10^3/uL Lymphocytes # (Auto) 1.3 10^3/uL Monocytes # (Auto) 0.7 10^3/uL Absolute Immature Granulocyte (auto 0.06 10^3 u/L Eosinophils % 2.4 % Basophils % 0.3 % Basophils # 0.0 10^3/uL Eosinophil Count 0.3 10^3/uL Sodium Level 137 mmol/L Potassium Level 4.2 mmol/L Chloride Level 102.0 mmol/L Carbon Dioxide Level 28.5 mmol/L Anion Gap 10.7 Blood Urea Nitrogen 13 mg/dL Creatinine 0.89 mg/dL Estimated GFR () 78.6 BUN/Creatinine Ratio 14.0 Glucose Level 102 mg/dL Calcium Level 9.0 mg/dL Total Bilirubin 0.4 mg/dL Aspartate Amino Transf (AST/SGOT) 28 U/L Alanine Aminotransferase (ALT/SGPT) 36 U/L Alkaline Phosphatase 85 U/L C-Reactive Protein 8.39 mg/dL Total Protein 7.0 g/dL Albumin 2.7 g/dL Globulin 4.3 Percent Immature Gran (Cell Imm) 0.60 % Current Medications Medications (Trade) Dose Ordered Sig/Jovanni Route PRN Reason Start Time Stop Time Status Last Admin Dose Admin Cefazolin Sodium 3 gm/Sodium Chloride 100 ml @ 100 mls/hr Q8 IV 11/30/18 14:00 12/30/18 13:59 12/01/18 05:19 Ondansetron HCl (Zofran) 4 mg Q4H PRN IV NAUSEA / VOMITING 11/30/18 13:30 12/30/18 13:29 11/30/18 13:41 Ondansetron HCl (Zofran) 4 mg STK-MED ONCE .ROUTE 11/30/18 13:26 11/30/18 13:29 DC Tramadol HCl (Ultram) 50 mg Q6H PRN PO MILD PAIN 11/30/18 15:00 12/30/18 14:59 Tramadol HCl (Ultram) 100 mg Q6H PRN PO SEVERE PAIN 11/30/18 15:00 12/30/18 14:59 11/30/18 15:12 Docusate Sodium (Colace) 100 mg DAILY PO 12/01/18 09:00 12/31/18 08:59 12/01/18 09:04 Famotidine (Pepcid) 20 mg DAILY PO 12/01/18 09:00 12/31/18 08:59 12/01/18 09:04 Metoclopramide HCl (Reglan) 10 mg BID IV 11/30/18 15:00 12/01/18 15:00 12/01/18 09:04 Aspirin (Aspirin Ec) 81 mg BID PO 11/30/18 21:00 12/30/18 20:59 12/01/18 09:04 Magnesium Citrate (Magnesium Citrate) 300 ml STAT STAT PO 11/30/18 14:31 11/30/18 14:48 DC 11/30/18 15:11 Aspirin (Aspirin Ec) 81 mg DAILY24 PO 11/30/18 15:00 11/30/18 15:14 DC Cholecalciferol (Vitamin D) 5,000 unit BID PO 11/30/18 21:00 12/30/18 20:59 12/01/18 09:04 Cyanocobalamin (Vitamin B-12) 1,000 mcg DAILY PO 12/01/18 09:00 12/31/18 08:59 12/01/18 09:05 Metoprolol Succinate (Toprol Xl) 25 mg DAILY PO 12/01/18 09:00 12/31/18 08:59 Pantoprazole Sodium (Protonix) 40 mg DAILY PO 12/01/18 09:00 12/31/18 08:59 Loratadine (Claritin) 10 mg DAILY PO 12/01/18 09:00 12/31/18 08:59 12/01/18 09:04 Ketorolac Tromethamine (Toradol) 30 mg Q6HR PRN IV PAIN 11/30/18 15:30 12/05/18 15:29 12/01/18 00:44 Course Sepsis Screening Results: Posi: NEGATIVE Sepsis Qualifier/Stage: NO DEFINITE RISK Vitals & review Data Vital Sign - Last 24 Hours 11/30/18 11/30/18 11/30/18 11/30/18 12:00 14:42 17:08 19:30 Pulse 82 Resp 17 Pulse Ox 96 O2 Delivery Room Air Room Air Room Air Room Air 11/30/18 11/30/18 12/01/18 12/01/18 19:38 20:44 00:00 05:10 Temp 98.5 98.3 99.1 98.5 98.3 99.1 Pulse 72 78 91 94 Resp 18 16 18 18 B/P (MAP) 106/63 (77) 91/60 (70) 90/53 (65) Pulse Ox 92 94 90 94 O2 Delivery Room Air Room Air Room Air Room Air FiO2 21 12/01/18 12/01/18 12/01/18 07:54 09:15 09:32 Temp 98.6 98.6 Pulse 94 94 Resp 18 18 B/P (MAP) 102/62 (75) Pulse Ox 94 94 O2 Delivery Vent Room Air Room Air FiO2 21 Intake and Output 11/30/18 11/30/18 12/01/18 15:01 23:01 07:01 Intake Total 1500 ml Output Total 2 ml Balance -2 ml 1500 ml Laboratory Tests Test 11/30/18 13:15 White Blood Count 10.4 10^3/uL Red Blood Count 3.85 10^6/uL Hemoglobin 11.7 g/dL Hematocrit 35.1 % Mean Corpuscular Volume 91.2 fL Mean Corpuscular Hemoglobin 30.4 pg Mean Corpuscular Hemoglobin Concent 33.3 g/dL Red Cell Distribution Width 14.5 % Platelet Count 316 10^3/uL Mean Platelet Volume 9.1 fL Neutrophils (%) (Auto) 76.9 % Lymphocytes (%) (Auto) 12.7 % Monocytes (%) (Auto) 7.1 % Neutrophils # (Auto) 8.0 10^3/uL Lymphocytes # (Auto) 1.3 10^3/uL Monocytes # (Auto) 0.7 10^3/uL Absolute Immature Granulocyte (auto 0.06 10^3 u/L Eosinophils % 2.4 % Basophils % 0.3 % Basophils # 0.0 10^3/uL Eosinophil Count 0.3 10^3/uL Sodium Level 137 mmol/L Potassium Level 4.2 mmol/L Chloride Level 102.0 mmol/L Carbon Dioxide Level 28.5 mmol/L Anion Gap 10.7 Blood Urea Nitrogen 13 mg/dL Creatinine 0.89 mg/dL Estimated GFR () 78.6 BUN/Creatinine Ratio 14.0 Glucose Level 102 mg/dL Calcium Level 9.0 mg/dL Total Bilirubin 0.4 mg/dL Aspartate Amino Transf (AST/SGOT) 28 U/L Alanine Aminotransferase (ALT/SGPT) 36 U/L Alkaline Phosphatase 85 U/L C-Reactive Protein 8.39 mg/dL Total Protein 7.0 g/dL Albumin 2.7 g/dL Globulin 4.3 Percent Immature Gran (Cell Imm) 0.60 % Current Medications Medications (Trade) Dose Ordered Sig/Jovanni PRN Reason Start Time Stop Time Status Last Admin Aspirin (Aspirin Ec) 81 mg BID 11/30/18 21:00 12/30/18 20:59 12/01/18 09:04 Cefazolin Sodium 3 gm/Sodium Chloride 100 ml @ 100 mls/hr Q8 11/30/18 14:00 12/30/18 13:59 12/01/18 05:19 Cholecalciferol (Vitamin D) 5,000 unit BID 11/30/18 21:00 12/30/18 20:59 12/01/18 09:04 Cyanocobalamin (Vitamin B-12) 1,000 mcg DAILY 12/01/18 09:00 12/31/18 08:59 12/01/18 09:05 Docusate Sodium (Colace) 100 mg DAILY 12/01/18 09:00 12/31/18 08:59 12/01/18 09:04 Famotidine (Pepcid) 20 mg DAILY 12/01/18 09:00 12/31/18 08:59 12/01/18 09:04 Ketorolac Tromethamine (Toradol) 30 mg Q6HR PRN PAIN 11/30/18 15:30 12/05/18 15:29 12/01/18 00:44 Loratadine (Claritin) 10 mg DAILY 12/01/18 09:00 12/31/18 08:59 12/01/18 09:04 Metoclopramide HCl (Reglan) 10 mg BID 11/30/18 15:00 12/01/18 15:00 12/01/18 09:04 Metoprolol Succinate (Toprol Xl) 25 mg DAILY 12/01/18 09:00 12/31/18 08:59 Ondansetron HCl (Zofran) 4 mg Q4H PRN NAUSEA / VOMITING 11/30/18 13:30 12/30/18 13:29 11/30/18 13:41 Pantoprazole Sodium (Protonix) 40 mg DAILY 12/01/18 09:00 12/31/18 08:59 Tramadol HCl (Ultram) 50 mg Q6H PRN MILD PAIN 11/30/18 15:00 12/30/18 14:59 Tramadol HCl (Ultram) 100 mg Q6H PRN SEVERE PAIN 11/30/18 15:00 12/30/18 14:59 11/30/18 15:12 Sepsis Infection Criteria Pres: Documented Infection LEVEL 1 SEPSIS INFECTION CRITE: ABX Therapy, Recent Invasive Procedure LEVEL 2-SIRS (LIST ALL THAT AP: None/Not assessed Cardiovascular Evidence: Not Assessed or None Hematologic Evidence: None/Not assessed Hepatic Evidence: None/Not assessed Metabolic Evidence: None/Not assessed Neurological Evidence: None/Not assessed Respiratory Evidence: None/Not assessed Renal Evidence: None/Not assessed O2 Sat by Pulse Oximetry: 94 JEAN CLAYTON MD Dec 02, 2018 10:22
--- NOTE | 2018-12-02 10:31 | NUR ---
STATUS PT REQUESTING TO GO HOME AND STATES, "THIS IS SOMETHING I CAN COME BACK AND DO FOR THE SCAN." DR VILLARREAL NOTIFIED Addendum: 12/02/18 at 1044 by SHEEBA Hickman MS RN WRONG PT
--- NOTE | 2018-12-02 10:43 | NUR ---
PHIL VILLARREAL AT [facility] Addendum: 12/02/18 at 1044 by Rosalie Fish RN - MS RN WRONG PT
[2018-12-02 13:46] VITALS: BP 111/65
[2018-12-02] MEDS: ULTRAM PO PRN ×2 (16:29→22:26)
[2018-12-02 17:55] VITALS: BP 111/62
[2018-12-02 20:42] VITALS: BP 117/76
[2018-12-03] VITALS (7 sets, daily range): BP systolic 112–129; BP diastolic 58–71
[2018-12-03] MEDS: LACTATED RINGERS 1,000 ML IV SCH ×3 (01:30→21:30)
[2018-12-03] MEDS: ANCEF 3 GM in NS 100ML 100 ML IV SCH ×2 (05:34→15:06)
[2018-12-03 06:30] LABS: HEMOGLOBIN 9.9 g/dL (12.0-15.0); MEAN CELL HGB 30.2 pg (26-34); MEAN CELL HGB CONCENTRATION 32.5 g/dL (33-37); MEAN PLATELET VOLUME 8.8 fL (7.8-11.0); RED CELL DISTRIBUTION WIDTH 14.8 % (11.5-14.5); WHITE BLOOD CELL 9.2 10^3/uL (4.5-11.0)
--- NOTE | 2018-12-03 06:47 | NUR ---
REPORT REPORT GIVEN TO JASPREET Naqvi RN.
--- NOTE | 2018-12-03 06:47 | NUR ---
REPORT REPORT RECEIVED FROM YADY Gomez RN ASSUMED CARE OF PT
[2018-12-03] MEDS: PROTONIX PO SCH (09:00)
[2018-12-03] MEDS: PEPCID PO SCH (09:00)
[2018-12-03] MEDS: VITAMIN D PO SCH ×2 (09:00→21:00)
[2018-12-03] MEDS: CLARITIN PO SCH (09:00)
[2018-12-03] MEDS: COLACE PO SCH (09:00)
[2018-12-03] MEDS: VITAMIN B-12 PO SCH (09:00)
[2018-12-03] MEDS: TOPROL XL PO SCH (10:14)
[2018-12-03] MEDS: TORADOL IV PRN (10:22)
--- NOTE | 2018-12-03 14:02 | NUR ---
DISCHARGE PLAN CM DEPARTMENT VISITED WITH PT REGARDING DISCHARGE NEEDS. PATIENT LIVES AT HOME WITH SPOUSE. SHE DOES HAVE ALL DME INCLUDING A SHOWER CHAIR AND WALKER. PREVIOUS VISIT PATIENT STATED THAT SHE WAS SET UP WITH OUT PATIENT @ [facility]. SHE STATED SHE NEVER STARTED PHYSICAL THERAPY D/T SHE WAS DISCHARGED AND THEN ENDED UP BEING READMITTED TO THE HOSPITAL. PATIENT STATED SHE WOULD LIKE TO CONTINUE OP THERAPY IN [place]. CM PROVIDED PATIENT WITH [facility] FOR TRANSPORTATION ASSISTANCE. DISCHARGE GOAL IS FOR PT TO D/C HOME AND CONTINUE OP THERAPY AT [facility]. CM WILL CONTINUE TO FOLLOW PATIENT FOR ANY NEEDS.
[2018-12-03] MEDS ORDERED: SODIUM CHLORIDE IR ONE (15:11)
[2018-12-03] MEDS ORDERED: NS 250ML 250 ML IV ONE ×2 (15:11→20:39)
[2018-12-03] MEDS ORDERED: TRANEXAMIC ACID IV ONE (15:17)
[2018-12-03] MEDS ORDERED: SUBLIMAZE ONE (15:45)
[2018-12-03] MEDS ORDERED: DILAUDID ONE (15:45)
[2018-12-03] MEDS ORDERED: LIDOCAINE 2% VIAL ONE (15:45)
[2018-12-03] MEDS ORDERED: VERSED ONE (15:50)
[2018-12-03] MEDS ORDERED: DIPRIVAN IV ONE (16:37)
[2018-12-03] MEDS ORDERED: PHENERGAN IV PRN (19:30)
[2018-12-03] MEDS ORDERED: ZOFRAN IV PRN (19:30)
[2018-12-03] MEDS ORDERED: DILAUDID IV PRN ×2 (19:30)
[2018-12-03] MEDS ORDERED: TORADOL ONE (19:33)
[2018-12-03] MEDS ORDERED: LACTATED RINGERS 1,000 ML ONE (19:33)
[2018-12-03] MEDS ORDERED: DECADRON ONE (19:33)
--- NOTE | 2018-12-03 20:05 | NUR ---
ARRIVAL FROM OR PATIENT ARRIVAL FROM OR. REPORT RECEIVED FROM GENESIS ALY. PT RESTING, C/O OF SLIGHT NAUSEA AT THIS TIME. SIDE RAILS X2. CALL LIGHT WITHIN REACH. BP 116/67, HR 66, 02 100 ON 2 L NASAL CANNULA, RR 20
[2018-12-03] MEDS ORDERED: NS 3000ML IRR IR ONE (20:18)
[2018-12-03] MEDS ORDERED: VANCOMYCIN HCL 2 GM ONE (20:39)
[2018-12-03] MEDS ORDERED: VANCOMYCIN HCL 1.5 GM in NS 250ML 300 ML IV SCH (21:00)
[2018-12-03] MEDS: VITAMIN C PO SCH (21:00)
[2018-12-04 00:30] VITALS: BP 114/67
--- NOTE | 2018-12-04 01:29 | OPH ---
DATE OF SURGERY: 12/03/2018 PREOPERATIVE DIAGNOSIS: Right hip wound drainage. POSTOPERATIVE DIAGNOSIS: Right hip wound drainage. OPERATIVE PROCEDURE: Incision, drainage and debridement of skin, subcutaneous tissue, synovium and right hip joint capsule, right hip. SURGEON: Archie Paez MD ANESTHESIA: LMA. BLOOD LOSS: 200 mL. DRAINS: None. DESCRIPTION OF INDICATIONS: The patient is a 58-year-old female. She is about 9 days out from right total hip arthroplasty for osteoarthritis. The patient was seen in the office late in the afternoon on 11/30/2018 with drainage from the inferior portion of the wound. There was no history of fever, chills or generalized malaise. The patient was admitted at that time and started on IV Ancef and the patient had a wound VAC placed over the wound, which basically was benign except for a small amount of serous drainage from the inferior 3 inches of the wound. The patient basically had no drainage from the wound until yesterday on 12/02/2018 when the wound VAC was removed to inspect the wound. The patient's wound was examined again today and again she continued to have a small amount of drainage from the inferior portion of the wound that was serous like. The patient was afebrile. She had mildly elevated sed rate. Her C-reactive protein was normal this morning. White count was normal. Because of continued drainage from the wound, the patient was taken to the operating room for incision and debridement. DESCRIPTION OF PROCEDURE: The patient was placed on the operating table in the supine position. LMA anesthetic was induced without difficulty. The patient had the right foot and ankle well padded and was placed in the traction boot. Right lower extremity was then attached to the traction unit. Right lower extremity then had the jeff removed and the wound was sterilely prepped and draped. The #10 blade was used to open the wound inferiorly. Aerobic and anaerobic cultures as well as a Gram stain were obtained. The patient had the incision taken down through the skin and subcutaneous tissue. Any necrotic tissue was debrided with a #10 blade. The total length of the incision was 35 cm. The fascia was opened and basically we opened the incision down to the joint capsule. The capsule was excised and the joint itself was irrigated with 8 liters of saline via the jet lavage system. Any bleeding encountered was controlled with the Aquamantys device. There was some hematoma about the joint, but no obvious infection. The patient then had the wounds all copiously irrigated. Again, the bleeding was all controlled with the Aquamantys. The deep fascia was closed with a #2 PDS in interrupted [id number] manner. The fascial layer over the tensor fascia was closed with a #2 PDS in interrupted [id number] manner. Again, the subcutaneous again was copiously irrigated and any nonviable tissue was excised using the 10 blade as well as the Versajet system. The patient then had the skin and the subcutaneous closed in a continuous layer using #2 Prolene in a vertical mattress method. The skin between the vertical mattress sutures was closed with jeff. The patient then had a large Prevena type suction dressing applied. The patient was extubated in the operating room and sent to recovery in stable condition. Archie Paez MD DR: [facility]ino JOB# [id number]
[2018-12-04] MEDS: ULTRAM PO PRN ×2 (02:56→11:45)
[2018-12-04] MEDS: LACTATED RINGERS 1,000 ML IV SCH ×2 (02:56→17:49)
[2018-12-04] MEDS: ZOFRAN IV PRN ×3 (05:07→21:58)
[2018-12-04 05:30] VITALS: BP 126/69
--- NOTE | 2018-12-04 06:41 | NUR ---
REPORT REPORT RECEIVED FROM YADY Garg RN ASSUMED CARE OF PT
[2018-12-04 07:10] VITALS: BP 106/65
[2018-12-04] MEDS: PROTONIX PO SCH (10:11)
[2018-12-04] MEDS: VITAMIN B-12 PO SCH (10:11)
[2018-12-04] MEDS: TOPROL XL PO SCH (10:12)
[2018-12-04] MEDS: VITAMIN D PO SCH ×2 (10:12→20:38)
[2018-12-04] MEDS: CLARITIN PO SCH (10:12)
[2018-12-04] MEDS: VITAMIN C PO SCH ×2 (10:12→20:38)
[2018-12-04] MEDS: PEPCID PO SCH (10:12)
[2018-12-04] MEDS: COLACE PO SCH (10:12)
--- NOTE | 2018-12-04 10:55 | PRM.PN ---
Subjective Subjective Date: Dec 04, 2018 Time: 10:53 Subjective Pain better the am Had BM N/V much better Minimal drainage from wound vac Cont with IV Ancef Minimal pain this am Afebrile VSS Has 40cc of drainage out this am Stop ASA Cont with IV ancef Reevaluate later today No complaints Afebrile Still having drainage from inferior part of wound To OR for I&D later today Awake and alert Pain ok VSS afebrile No drainage GS - Start PT Cont with Vanco Patient History: Asthma V19 CHILD ( A CHILD) Congestive heart failure 32 MOTHER, , Age:70 Diabetes mellitus G8 BROTHER FH: coronary artery bypass surgery 32 MOTHER, , Age:70 G8 BROTHER FH: coronary artery disease 32 MOTHER, , Age:70 G8 BROTHER Hypertension 32 MOTHER, , Age:70 G8 BROTHER No known health problems G8 SISTER V19 CHILD V19 CHILD V19 CHILD No Family History of: Alzheimer's disease Cerebrovascular disorder Chronic obstructive pulmonary disease Diabetes insipidus Parkinson's disease VTE VTE Risk Total Score: >5 VTE Risk Score VTE Risk: Score 0-1 = Low Risk (Aggressive mobilization; early ambulation; no VTE prophylaxis required) Score 2: Moderate Risk (Intermittent/Pneumatic Compression Device OR Lovenox/Heparin/Coumadin) Score 3-4: High Risk (Intermittent/Pneumatic Compression Device AND Lovenox/Heparin/Coumadin) Score > or =5: Highest Risk (Intermittent/Pneumatic Compression Device AND Lovenox/Heparin/Coumadin) Review of Systems Allergies: Coded Allergies: amoxicillin (Verified Allergy, Unknown, WELPS ON THE FACE, 11/30/18) clavulanic acid (Verified Allergy, Unknown, WELPS ON THE FACE, 11/30/18) codeine (Verified Allergy, Unknown, NAUSEA, VOMITING, 11/30/18) Scheduled Aspirin (Aspirin Ec), 1 TAB PO DAILY24, (Reported) Cholecalciferol (Vitamin D3) (Vitamin D3), 1 TAB PO BID, (Reported) Cyanocobalamin (Vitamin B-12) (Vitamin B-12), 1 TAB PO DAILY, (Reported) Lansoprazole (Lansoprazole), 1 CAP PO DAILY, (Reported) Metoprolol Succinate (Metoprolol Succinate), 1 TAB PO DAILY, (Reported) Psyllium Seed (Fiber Therapy), 1,368 GM PO BID, (Reported) Tramadol Hcl (Tramadol Hcl), 1-2 TAB PO Q6HR, (Reported) Scheduled PRN Levocetirizine Dihydrochloride (Levocetirizine Dihydrochloride), 1 TAB PO HS PRN for SINUS DRAINAGE, (Reported) Discontinued Medications Vitamin E Mixed (Vitamin E), 100 UNIT PO DAILY24, (Reported) Discontinued Reason: HOLD Objective Vitals and I/O Vital Sign - Last 24 Hours 11/30/18 11/30/18 11/30/18 11/30/18 12:00 14:42 17:08 19:30 Pulse 82 Resp 17 Pulse Ox 96 O2 Delivery Room Air Room Air Room Air Room Air 11/30/18 11/30/18 12/01/18 12/01/18 19:38 20:44 00:00 05:10 Temp 98.5 98.3 99.1 98.5 98.3 99.1 Pulse 72 78 91 94 Resp 18 16 18 18 B/P (MAP) 106/63 (77) 91/60 (70) 90/53 (65) Pulse Ox 92 94 90 94 O2 Delivery Room Air Room Air Room Air Room Air FiO2 21 12/01/18 12/01/18 12/01/18 07:54 09:15 09:32 Temp 98.6 98.6 Pulse 94 94 Resp 18 18 B/P (MAP) 102/62 (75) Pulse Ox 94 94 O2 Delivery Vent Room Air Room Air FiO2 21 Intake and Output 11/30/18 11/30/18 12/01/18 15:01 23:01 07:01 Intake Total 1500 ml Output Total 2 ml Balance -2 ml 1500 ml All Results(Lab/Rad) Laboratory Tests Test 11/30/18 13:15 White Blood Count 10.4 10^3/uL Red Blood Count 3.85 10^6/uL Hemoglobin 11.7 g/dL Hematocrit 35.1 % Mean Corpuscular Volume 91.2 fL Mean Corpuscular Hemoglobin 30.4 pg Mean Corpuscular Hemoglobin Concent 33.3 g/dL Red Cell Distribution Width 14.5 % Platelet Count 316 10^3/uL Mean Platelet Volume 9.1 fL Neutrophils (%) (Auto) 76.9 % Lymphocytes (%) (Auto) 12.7 % Monocytes (%) (Auto) 7.1 % Neutrophils # (Auto) 8.0 10^3/uL Lymphocytes # (Auto) 1.3 10^3/uL Monocytes # (Auto) 0.7 10^3/uL Absolute Immature Granulocyte (auto 0.06 10^3 u/L Eosinophils % 2.4 % Basophils % 0.3 % Basophils # 0.0 10^3/uL Eosinophil Count 0.3 10^3/uL Sodium Level 137 mmol/L Potassium Level 4.2 mmol/L Chloride Level 102.0 mmol/L Carbon Dioxide Level 28.5 mmol/L Anion Gap 10.7 Blood Urea Nitrogen 13 mg/dL Creatinine 0.89 mg/dL Estimated GFR () 78.6 BUN/Creatinine Ratio 14.0 Glucose Level 102 mg/dL Calcium Level 9.0 mg/dL Total Bilirubin 0.4 mg/dL Aspartate Amino Transf (AST/SGOT) 28 U/L Alanine Aminotransferase (ALT/SGPT) 36 U/L Alkaline Phosphatase 85 U/L C-Reactive Protein 8.39 mg/dL Total Protein 7.0 g/dL Albumin 2.7 g/dL Globulin 4.3 Percent Immature Gran (Cell Imm) 0.60 % Current Medications Medications (Trade) Dose Ordered Sig/Jovanni Route PRN Reason Start Time Stop Time Status Last Admin Dose Admin Cefazolin Sodium 3 gm/Sodium Chloride 100 ml @ 100 mls/hr Q8 IV 11/30/18 14:00 12/30/18 13:59 12/01/18 05:19 Ondansetron HCl (Zofran) 4 mg Q4H PRN IV NAUSEA / VOMITING 11/30/18 13:30 12/30/18 13:29 11/30/18 13:41 Ondansetron HCl (Zofran) 4 mg STK-MED ONCE .ROUTE 11/30/18 13:26 11/30/18 13:29 DC Tramadol HCl (Ultram) 50 mg Q6H PRN PO MILD PAIN 11/30/18 15:00 12/30/18 14:59 Tramadol HCl (Ultram) 100 mg Q6H PRN PO SEVERE PAIN 11/30/18 15:00 12/30/18 14:59 11/30/18 15:12 Docusate Sodium (Colace) 100 mg DAILY PO 12/01/18 09:00 12/31/18 08:59 12/01/18 09:04 Famotidine (Pepcid) 20 mg DAILY PO 12/01/18 09:00 12/31/18 08:59 12/01/18 09:04 Metoclopramide HCl (Reglan) 10 mg BID IV 11/30/18 15:00 12/01/18 15:00 12/01/18 09:04 Aspirin (Aspirin Ec) 81 mg BID PO 11/30/18 21:00 12/30/18 20:59 12/01/18 09:04 Magnesium Citrate (Magnesium Citrate) 300 ml STAT STAT PO 11/30/18 14:31 11/30/18 14:48 DC 11/30/18 15:11 Aspirin (Aspirin Ec) 81 mg DAILY24 PO 11/30/18 15:00 11/30/18 15:14 DC Cholecalciferol (Vitamin D) 5,000 unit BID PO 11/30/18 21:00 12/30/18 20:59 12/01/18 09:04 Cyanocobalamin (Vitamin B-12) 1,000 mcg DAILY PO 12/01/18 09:00 12/31/18 08:59 12/01/18 09:05 Metoprolol Succinate (Toprol Xl) 25 mg DAILY PO 12/01/18 09:00 12/31/18 08:59 Pantoprazole Sodium (Protonix) 40 mg DAILY PO 12/01/18 09:00 12/31/18 08:59 Loratadine (Claritin) 10 mg DAILY PO 12/01/18 09:00 12/31/18 08:59 12/01/18 09:04 Ketorolac Tromethamine (Toradol) 30 mg Q6HR PRN IV PAIN 11/30/18 15:30 12/05/18 15:29 12/01/18 00:44 Course Sepsis Screening Results: Posi: NEGATIVE Sepsis Qualifier/Stage: NO DEFINITE RISK Vitals & review Data Vital Sign - Last 24 Hours 11/30/18 11/30/18 11/30/18 11/30/18 12:00 14:42 17:08 19:30 Pulse 82 Resp 17 Pulse Ox 96 O2 Delivery Room Air Room Air Room Air Room Air 11/30/18 11/30/18 12/01/18 12/01/18 19:38 20:44 00:00 05:10 Temp 98.5 98.3 99.1 98.5 98.3 99.1 Pulse 72 78 91 94 Resp 18 16 18 18 B/P (MAP) 106/63 (77) 91/60 (70) 90/53 (65) Pulse Ox 92 94 90 94 O2 Delivery Room Air Room Air Room Air Room Air FiO2 21 12/01/18 12/01/18 12/01/18 07:54 09:15 09:32 Temp 98.6 98.6 Pulse 94 94 Resp 18 18 B/P (MAP) 102/62 (75) Pulse Ox 94 94 O2 Delivery Vent Room Air Room Air FiO2 21 Intake and Output 11/30/18 11/30/18 12/01/18 15:01 23:01 07:01 Intake Total 1500 ml Output Total 2 ml Balance -2 ml 1500 ml Laboratory Tests Test 11/30/18 13:15 White Blood Count 10.4 10^3/uL Red Blood Count 3.85 10^6/uL Hemoglobin 11.7 g/dL Hematocrit 35.1 % Mean Corpuscular Volume 91.2 fL Mean Corpuscular Hemoglobin 30.4 pg Mean Corpuscular Hemoglobin Concent 33.3 g/dL Red Cell Distribution Width 14.5 % Platelet Count 316 10^3/uL Mean Platelet Volume 9.1 fL Neutrophils (%) (Auto) 76.9 % Lymphocytes (%) (Auto) 12.7 % Monocytes (%) (Auto) 7.1 % Neutrophils # (Auto) 8.0 10^3/uL Lymphocytes # (Auto) 1.3 10^3/uL Monocytes # (Auto) 0.7 10^3/uL Absolute Immature Granulocyte (auto 0.06 10^3 u/L Eosinophils % 2.4 % Basophils % 0.3 % Basophils # 0.0 10^3/uL Eosinophil Count 0.3 10^3/uL Sodium Level 137 mmol/L Potassium Level 4.2 mmol/L Chloride Level 102.0 mmol/L Carbon Dioxide Level 28.5 mmol/L Anion Gap 10.7 Blood Urea Nitrogen 13 mg/dL Creatinine 0.89 mg/dL Estimated GFR () 78.6 BUN/Creatinine Ratio 14.0 Glucose Level 102 mg/dL Calcium Level 9.0 mg/dL Total Bilirubin 0.4 mg/dL Aspartate Amino Transf (AST/SGOT) 28 U/L Alanine Aminotransferase (ALT/SGPT) 36 U/L Alkaline Phosphatase 85 U/L C-Reactive Protein 8.39 mg/dL Total Protein 7.0 g/dL Albumin 2.7 g/dL Globulin 4.3 Percent Immature Gran (Cell Imm) 0.60 % Current Medications Medications (Trade) Dose Ordered Sig/Jovanni PRN Reason Start Time Stop Time Status Last Admin Aspirin (Aspirin Ec) 81 mg BID 11/30/18 21:00 12/30/18 20:59 12/01/18 09:04 Cefazolin Sodium 3 gm/Sodium Chloride 100 ml @ 100 mls/hr Q8 11/30/18 14:00 12/30/18 13:59 12/01/18 05:19 Cholecalciferol (Vitamin D) 5,000 unit BID 11/30/18 21:00 12/30/18 20:59 12/01/18 09:04 Cyanocobalamin (Vitamin B-12) 1,000 mcg DAILY 12/01/18 09:00 12/31/18 08:59 12/01/18 09:05 Docusate Sodium (Colace) 100 mg DAILY 12/01/18 09:00 12/31/18 08:59 12/01/18 09:04 Famotidine (Pepcid) 20 mg DAILY 12/01/18 09:00 12/31/18 08:59 12/01/18 09:04 Ketorolac Tromethamine (Toradol) 30 mg Q6HR PRN PAIN 11/30/18 15:30 12/05/18 15:29 12/01/18 00:44 Loratadine (Claritin) 10 mg DAILY 12/01/18 09:00 12/31/18 08:59 12/01/18 09:04 Metoclopramide HCl (Reglan) 10 mg BID 11/30/18 15:00 12/01/18 15:00 12/01/18 09:04 Metoprolol Succinate (Toprol Xl) 25 mg DAILY 12/01/18 09:00 12/31/18 08:59 Ondansetron HCl (Zofran) 4 mg Q4H PRN NAUSEA / VOMITING 11/30/18 13:30 12/30/18 13:29 11/30/18 13:41 Pantoprazole Sodium (Protonix) 40 mg DAILY 12/01/18 09:00 12/31/18 08:59 Tramadol HCl (Ultram) 50 mg Q6H PRN MILD PAIN 11/30/18 15:00 12/30/18 14:59 Tramadol HCl (Ultram) 100 mg Q6H PRN SEVERE PAIN 11/30/18 15:00 12/30/18 14:59 11/30/18 15:12 Sepsis Infection Criteria Pres: Documented Infection LEVEL 1 SEPSIS INFECTION CRITE: ABX Therapy, Recent Invasive Procedure LEVEL 2-SIRS (LIST ALL THAT AP: RR>20/min Cardiovascular Evidence: Not Assessed or None Hematologic Evidence: None/Not assessed Hepatic Evidence: None/Not assessed Metabolic Evidence: None/Not assessed Neurological Evidence: None/Not assessed Respiratory Evidence: None/Not assessed Renal Evidence: None/Not assessed O2 Sat by Pulse Oximetry: 93 Oxygen Flow Rate: 1.50 JEAN CLAYTON MD Dec 04, 2018 10:55
[2018-12-04] MEDS: VANCOMYCIN HCL 1.5 GM in NS 500ML 500 ML IV SCH ×2 (11:05→20:38)
[2018-12-04 11:49] VITALS: BP 98/54
[2018-12-04 17:20] VITALS: BP 106/49
[2018-12-04 19:30] VITALS: BP 92/56
[2018-12-05] VITALS: BP 98/55
[2018-12-05] MEDS: ULTRAM PO PRN ×2 (04:12→08:37)
[2018-12-05 04:38] VITALS: BP 95/57
--- NOTE | 2018-12-05 06:40 | NUR ---
Report Received report and assumed care of pt. Pt resting in bed with eyes closed. Equal rise and fall of the chest noted. Call light within reach.
--- NOTE | 2018-12-05 06:59 | NUR ---
REPORT TO SCOUT ALY
[2018-12-05 08:00] VITALS: BP 102/62
--- NOTE | 2018-12-05 08:26 | NUR ---
DISCHARGE PLAN CM FOLLOWED UP WITH PT REGARDING DISCHARGE NEEDS. PATIENT VERBALLY REFUSED GOING TO A LTAC IN [facility]. PATIENT DID AGREE TO HOME HEALTH SERVICES THAT WOULD COME TO HER HOME. [facility] CONTACTED REGARDING PATIENT NEEDS. AWAITING CALL BACK TO SEE IF THEY WOULD BE ABLE TO SEE PATIENT IN THAT AREA D/T THEY ARE BASED OUT [facility]. CHOICE LETTER SIGNED AND PLACED IN CHART. WILL CONTINUE TO FOLLOW DISCHARGE NEEDS.
[2018-12-05] MEDS: VITAMIN C PO SCH (08:36)
[2018-12-05] MEDS: PEPCID PO SCH (08:36)
[2018-12-05] MEDS: VITAMIN D PO SCH (08:36)
[2018-12-05] MEDS: CLARITIN PO SCH (08:36)
[2018-12-05] MEDS: VITAMIN B-12 PO SCH (08:36)
[2018-12-05] MEDS: PROTONIX PO SCH (08:36)
[2018-12-05] MEDS: COLACE PO SCH (08:36)
[2018-12-05] MEDS: TOPROL XL PO SCH (08:37)
--- NOTE | 2018-12-05 08:42 | NUR ---
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
[2018-12-05] MEDS ORDERED: CEPH-350 PO (09:49)
--- NOTE | 2018-12-05 10:30 | NUR ---
Discharge Discharge instructions given to pt. Educated pt on antibiotic. Pt able to verbalize understanding. Educated pt on importance of follow up with . Pt able to verbalize understanding. Educated pt on care of prevena wound vac. Pt able to verbalize understanding. Answered all pt questions. Pt denies further questions or concerns. Removed IV. No bleeding, redness, heat, edema, or pain noted. Covered site with cotton ball and band aid. Transferred pt off unit via wheelchair to personal vehicle. No s/s of distress noted.
--- NOTE | 2018-12-05 20:03 | DSH ---
DATE OF DISCHARGE: 12/05/2018 ADMITTING DIAGNOSIS: Hematoma of right hip wound with drainage. DISCHARGE DIAGNOSIS: Hematoma of right hip wound with drainage. OTHER DIAGNOSES: Include obesity, hypertension, and anemia. OPERATIVE PROCEDURE DATE: 12/03/2018. PROCEDURE PERFORMED: Drainage of hematoma, right hip. CONSULTATIONS: None. COMPLICATIONS: None. SUMMARY OF ADMISSION: The patient is a 58-year-old female who underwent right total hip arthroplasty on 11/23/2018. She was seen in my office on 11/30/2018. She was noted to have a small amount of drainage from the inferior portion of her wound. She also was having nausea and vomiting as well as severe constipation. She was afebrile. Because of the continued drainage and the other problems with nausea and vomiting, she was admitted to the hospital. The patient had a wound VAC applied to her wound at that time. She was started on IV Ancef. The patient did not have any drainage from the wound for 2 days. Her white count was normal. Again, she was afebrile. Clinically, the patient was improving and unfortunately on 12/02/2018, the patient started having drainage again from the inferior portion of the wound. The patient therefore was taken to the operating room on 12/03/2018. She had a hematoma drained from the hip. The cultures were negative. The Gram stain was negative. She has been on IV vancomycin postoperatively. On discharge, the patient has no drainage out of the hip. The patient is afebrile. She is able to ambulate with her walker, partial weightbearing on the right side with minimal pain. She will be discharged today on 12/05/2018. She will be instructed to leave her Aquacel dressing intact. The patient will be asked to be seen back in my office in approximately 5 days. She will use the walker. I will give her a prescription for Keflex. Archie Paez MD DR: [facility] JOB# [id number]
== END 2018-12-05 10:36 | disposition home or self-care (01) | DRG 909 ==
LOC: MS 11:46
PROVIDERS: ADMIT Orthopaedic Surgery; ATTEND Orthopaedic Surgery
PROC: 0S990ZZ Drainage of Right Hip Joint, Open Approach (ICD-10-PCS; principal; 2018-11-30)
PROC: 0SB90ZZ Excision of Right Hip Joint, Open Approach (ICD-10-PCS; 2018-11-30)
DX: M96.840 Postprocedural hematoma of a musculoskeletal structure following a musculoskeletal system procedure (principal); M19.90 Unspecified osteoarthritis, unspecified site; E66.9 Obesity, unspecified; I10 Essential (primary) hypertension; D64.9 Anemia, unspecified; K59.00 Constipation, unspecified; Z96.641 Presence of right artificial hip joint; Y83.8 Other surgical procedures as the cause of abnormal reaction of the patient, or of later complication, without mention of misadventure at the time of the procedure; Z98.51 Tubal ligation status; Z90.710 Acquired absence of both cervix and uterus; Z88.5 Allergy status to narcotic agent; Z88.1 Allergy status to other antibiotic agents; Z82.49 Family history of ischemic heart disease and other diseases of the circulatory system; Z83.3 Family history of diabetes mellitus; Z68.37 Body mass index [BMI] 37.0-37.9, adult; Y93.89 Activity, other specified; Y92.89 Other specified places as the place of occurrence of the external cause; Y99.8 Other external cause status
CPT/HCPCS: 36415; 80053; 85025; 85027; 85651; 86140; 87070; 87075; 93005; 97161; A4217; A6550; G0378; J0690; J1100; J1170; J1885; J2001; J2250; J2405; J2765; J3010; J3490; J7040; J7050; J7120; A9270; C1729

== ENCOUNTER → 2019-03-20 | Outpatient (CLI) | payer BC ==
[~2019-03-20] MED LIST changes: +CEPH-350 PO
[2019-03-20 12:08] LABS: BASOPHIL % 0.4 % (0.0-0.2); EOSINOPHIL # 0.2 10^3/uL (0.0-0.2); EOSINOPHIL % 2.1 % (0.0-5.0); HEMOGLOBIN 13.8 g/dL (12.0-15.0); LYMPHOCYTES # 1.6 10^3/uL (1.0-4.8); LYMPHOCYTES % 20.3 % (24.0-44.0); MEAN CELL HGB 28.3 pg (26-34); MEAN CELL HGB CONCENTRATION 32.9 g/dL (33-37); MEAN PLATELET VOLUME 9.6 fL (7.8-11.0); MONOCYTES # 0.5 10^3/uL (0.3-0.8); MONOCYTES % 5.6 % (5.0-12.0); NEUTROPHIL # 5.7 10^3/uL (1.8-7.7); NEUTROPHILS % 71.5 % (41.0-85.0); RED CELL DISTRIBUTION WIDTH 15.4 % (11.5-14.5)
== END | disposition home or self-care (01) ==
LOC: LAB 11:39
PROVIDERS: ATTEND Orthopaedic Surgery
DX: T84.84XA Pain due to internal orthopedic prosthetic devices, implants and grafts, initial encounter (principal); Y83.9 Surgical procedure, unspecified as the cause of abnormal reaction of the patient, or of later complication, without mention of misadventure at the time of the procedure
CPT/HCPCS: 36415; 85025; 85651; 86140

== ENCOUNTER → 2019-04-01 | Outpatient (CLI) | payer BC | END | disposition home or self-care (01) | LOC: LAB 11:38 | PROVIDERS: ATTEND Orthopaedic Surgery | DX: Z79.01 Long term (current) use of anticoagulants (principal); Z98.890 Other specified postprocedural states | CPT/HCPCS: 36415; 85049; 85610; 85730 ==

== ENCOUNTER → 2019-04-04 | Outpatient (CLI) | payer BC ==
[~2019-04-04] MED LIST changes: +LIDOCAINE 1% VIAL ONE
--- NOTE | 2019-04-04 14:22 | DIREP ---
PROCEDURE:US GUIDANCE FOR NEEDLE PLACEMENT COMPARISON:[facility], CR, XRAY HIP MIN 2VW-RT, 11/26/2018, 08:28 AM. INDICATIONS:RIGHT HIP INFECTED FINDINGS:Informed consent was obtained from the patient. The area was marked and prepped and draped in the usual sterile fashion. Using ultrasound guidance and lidocaine 1% local infiltrative anesthesia, a 25 gauge spinal needle was placed into the right hip fluid collection. 12 cc of serosanguineous fluid was aspirated. 10 cc was submitted to microbiology as requested. The patient tolerated the procedure well without immediate complications. CONCLUSION:Ultrasound guided right hip aspiration. Dictated by: Sara Singer MD on 04/04/2019 at 02:25 PM
== END | disposition home or self-care (01) ==
LOC: RAD 09:57
PROVIDERS: ATTEND Orthopaedic Surgery
DX: M16.11 Unilateral primary osteoarthritis, right hip (principal); I10 Essential (primary) hypertension; I25.10 Atherosclerotic heart disease of native coronary artery without angina pectoris; Z88.1 Allergy status to other antibiotic agents; Z88.5 Allergy status to narcotic agent; Z88.8 Allergy status to other drugs, medicaments and biological substances; Z79.2 Long term (current) use of antibiotics; Z79.899 Other long term (current) drug therapy; Z87.891 Personal history of nicotine dependence; Z90.710 Acquired absence of both cervix and uterus; Z79.01 Long term (current) use of anticoagulants; Z98.51 Tubal ligation status; Z90.49 Acquired absence of other specified parts of digestive tract; Z83.3 Family history of diabetes mellitus; Z82.49 Family history of ischemic heart disease and other diseases of the circulatory system; Z82.5 Family history of asthma and other chronic lower respiratory diseases
CPT/HCPCS: 20611; 87070; 87075; J2001; 20610; 77002

== ENCOUNTER → 2019-05-30 | Outpatient (CLI) | payer BC ==
[~2019-05-30] MED LIST changes: +CYAN-26 PO; -CYAN10005 PO; -LIDOCAINE 1% VIAL ONE
--- NOTE | 2019-05-30 17:34 | DIREP ---
PROCEDURE:NM BONE SCAN 3 PHASE WHOLE BODY COMPARISON:[facility], CR, XRAY HIP MIN 2VW-RT, 11/26/2018, 08:28 AM.With radiographs. INDICATIONS:M25.551 CHRONIC PAIN AFTER RIGHT CORNELL TECHNIQUE:After obtaining the patient's consent, Technetium 99m MDP was injected intravenously. Dynamic flow, immediate blood pool, and delayed static images were obtained. Exam is limited due to lack of comparative radiography. PHARMACEUTICAL:Technetium 99m MDP, 24.9 mCi FINDINGS: IMAGED AREA: Pelvis and bilateral hip joints. Examination limited due to lack of comparative radiographs of the area of interest within the last 24 hours. Mildly increased uptake surrounding the right femoral arthroplasty on both blood pool and delayed phases. Likely degenerative uptake about the bilateral gluteus tendon insertions. There is also multilevel degenerative uptake noted about the bilateral mid feet, tibiotalar joints, knee joints, shoulder joints and acromioclavicular joints. Multilevel spinal degenerative style uptake also noted. Normal renal uptake bilaterally. OTHER:Negative. CONCLUSION:Findings concerning for possible aseptic loosening of the right femoral arthroplasty. Recommend correlation with radiography. Dictated by: Rigo Silva DO on 05/30/2019 at 05:24 PM
== END | disposition home or self-care (01) ==
LOC: RAD 08:11
PROVIDERS: ATTEND Orthopaedic Surgery
DX: M25.551 Pain in right hip (principal)
CPT/HCPCS: 78315; A9503

== ENCOUNTER → 2021-07-13 | Outpatient (CLI) | payer BC ==
[~2021-07-13] MED LIST changes: -ASPI-655 PO; +ASPI-929 PO
--- NOTE | 2021-07-16 15:15 | DIREP ---
PROCEDURE: HI BONE SCAN 3 PHASE WHOLE BODY COMPARISON: [facility], HI, HI BONE SCAN 3 PHASE WHOLE BODY, 05/30/2019, 09:30 AM. [facility] and Spiral CT, MR, MRI HIP JOINT RIGHT WITHOUT CONTRAST, 05/19/2021, 12:34 PM. INDICATIONS: M25.551 PAIN IN RIGHT HIP TECHNIQUE: After obtaining the patients consent, Technetium 99m MDP was injected intravenously. Dynamic flow, immediate blood pool, and delayed static images were obtained. PHARMACEUTICAL: Technetium 99m MDP, 25.2 mCi FINDINGS: IMAGED AREA: Bilateral hips Normal blood flow and blood pool phase about the bilateral hip joints. Mildly increased uptake compatible degenerative changes about the bilateral shoulders, multiple levels of the spine, the right knee joint, the bilateral ankle joints/mid feet. No evidence of malignancy. No evidence of complication involving the right hip arthroplasty.. CONCLUSION: Degenerative changes without acute visualized process . Specifically there is no evidence of complication involving the right hip arthroplasty Dictated by: Rigo Silva DO on 07/13/2021 at 04:26 PM [facility]
== END | disposition home or self-care (01) ==
LOC: RAD 09:22
PROVIDERS: ATTEND Orthopaedic Surgery
DX: M16.0 Bilateral primary osteoarthritis of hip (principal); M25.551 Pain in right hip
CPT/HCPCS: 78315; A9503

== ENCOUNTER 2022-06-14 05:50 | Day surgery (SDC) | payer BC ==
[2022-06-10 11:30] VITALS: BP 100/66
--- NOTE | 2022-06-10 12:07 | PCM.EKG ---
[facility] Test Date: 2022-06-10 Test Time: 11:41:51 Pat Name: NORA JULIAN Department: Room: Gender: F Trading Manager: LISSET MCKEE : 1960 Requested By: VLADIMIR HUTCHINS Order Number: [id number] Reading MD: Measurements Intervals [place] Rate: 64 P: 55 NV: 154 QRS: 45 QRSD: 86 T: 24 QT: 426 QTc: 439 Interpretive Statements Normal sinus rhythm Compared to ECG 11/30/2018 14:05:17 No significant changes Please click the below link to view image of tracing.
[2022-06-10 12:41] LABS: CARBON DIOXIDE 31.8 mmol/L (20.0-32)
[2022-06-10 12:48] LABS: BASOPHIL % 0.3 % (0.0-0.2); EOSINOPHIL # 0.2 10^3/uL (0.0-0.2); EOSINOPHIL % 1.8 % (0.0-5.0); LYMPHOCYTES # 1.62 10^3/uL1 (1.0-4.8); MEAN CORP HGB 30.1 pg (26-34); MONOCYTES # 0.6 10^3/uL (0.3-0.8); MONOCYTES % 5.8 % (5.0-12.0); NEUTROPHIL # 8.3 10^3/uL (1.8-7.7); PLATELET COUNT 247 10^3/uL (150-400); RED CELL DISTRIBUTION WIDTH 14.8 % (11.5-14.5)
--- NOTE | 2022-06-10 13:58 | DIREP ---
PROCEDURE:CHEST 2 VIEWS COMPARISON:[facility], CR, XRAY CHEST 2 VWS, 05/14/2018, 03:28 PM. INDICATIONS:PRE OP HEART CATH FINDINGS: LUNGS/PLEURA:No significant pulmonary parenchymal abnormalities. No effusions. Stable bibasilar atelectasis. VASCULATURE:Normal. Unremarkable pulmonary vasculature. CARDIAC:Normal. No cardiac silhouette abnormality or cardiomegaly. MEDIASTINUM:Normal. No visible mass or adenopathy. BONES:Normal. No fracture or visible bony lesion. OTHER:Negative. CONCLUSION:No acute findings. Dictated by: Amandeep Brown MD on 06/10/2022 at 01:55 PM
[2022-06-14] VITALS (10 sets, daily range): BP systolic 106–148; BP diastolic 59–98
[~2022-06-14] VITALS: Ht 165.1 cm; Wt 100.7 kg
[~2022-06-14 05:50] MED LIST changes: +ASCO500C PO; +ATOR40TA PO; +GABA100C7 PO; +LETR2.5T2 PO
[2022-06-14] MEDS ORDERED: NS 1000ML 1,000 ML IV SCH (06:00)
[2022-06-14] MEDS ORDERED: VALIUM PO ONE (06:00)
[2022-06-14] MEDS ORDERED: PHENERGAN PO ONE (06:00)
[2022-06-14] MEDS ORDERED: NS 1000ML 1,000 ML ONE ×2 (06:01→06:59)
[2022-06-14] MEDS ORDERED: PHENERGAN ONE (06:02)
[2022-06-14] MEDS ORDERED: VALIUM ONE (06:03)
[2022-06-14] MEDS ORDERED: SUBLIMAZE ONE (06:59)
[2022-06-14] MEDS ORDERED: XYLOCAINE ONE (06:59)
[2022-06-14] MEDS ORDERED: HEPARIN ONE (06:59)
[2022-06-14] MEDS ORDERED: VERSED ONE (06:59)
--- NOTE | 2022-06-14 08:33 | HPH ---
ADMIT DATE: 06/14/2022 DICTATOR NAME: Anna Odell MD CHIEF COMPLAINT: Dyspnea on exertion, abnormal myocardial perfusion scan. HISTORY OF PRESENT ILLNESS: The patient is a 61-year-old white female with underlying history of hypertension and has a chronic pain syndrome and has got back pain and she has hyperlipidemia, and she underwent a perfusion study, which was abnormal with multi-segmental ischemia. Hence, admitted for cardiac catheterization to assess for significant coronary artery disease. ALLERGIES: CODEINE. MEDICATIONS: She is on metoprolol 25 mg once a day and Lipitor 40 mg once a day, vitamin C 1000 mg once a day, vitamin B12 one tablet daily, gabapentin 200 mg at bedtime, letrozole 2.5 mg as directed, melatonin 10 mg once a day and vitamin D3 2000 units daily. PAST MEDICAL HISTORY: Very positive family history of ischemic heart disease and she is an ex-smoker, history of colon resection, Johnson's esophagus, hypertension, chronic pain syndrome, GERD manifestation, post-lumpectomy, right breast; no cancer, hyperlipidemia, obesity and multiple risk factors of coronary artery disease. SOCIAL HISTORY: No alcohol abuse and she quit smoking in 2012, before that has had about 96-xu-69-pack year history of smoking. She had an abnormal entity even in 2018, but the perfusion scan was normal, but at the present time, the perfusion scan is abnormal. SURGICAL HISTORY: She had a cath done in 2017, she had a non-flow obstructive coronary artery disease, post-hysterectomy, post-tubal ligation, lumbar disk operation, history of umbilical hernia, post-cholecystectomy, history of colonoscopy in 2012, right hip operation, lumpectomy [place] [address] Charles and she did have a malignancy and had radiation treatment. FAMILY HISTORY: Mother of kidney and heart problems and had congestive heart failure. Father of an AL at age 67. REVIEW OF SYSTEMS: Fatigue, weakness, shortness of breath, occasional chest heaviness and back pain. PHYSICAL EXAMINATION: GENERAL: She was alert, awake, oriented and had a height of 5 feet 5 inches, 222 pounds. VITAL SIGNS: Blood pressure was 130/80, pulse was 80, respirations 18, saturation 95%. HEENT: Unremarkable. Obesity noted. NECK: No JVD, no carotid bruits. CHEST: Thick chest wall. LUNGS: Poor air entry bilaterally. HEART: Sounds normal. ABDOMEN: Truncal obesity, complaining of back pain post lumpectomy of the breast in 02/2020 on the right side. Abdomen is protuberant. EXTREMITIES: No dependent edema. NEUROLOGIC: No focal neuro deficit is documented. IMPRESSION: Abnormal myocardial perfusion scan, multiple risk factors for coronary artery disease, non-flow obstructive coronary artery disease based on cardiac catheterization in 2018. PLAN: Cardiac catheterization on 06/14/2022. We will continue her medications. Anna Odell MD DR: AVA/SOTO TID: [id number] RECEIPT: [id number]
--- NOTE | 2022-06-14 08:38 | HPH ---
ADMIT DATE: 06/14/2022 DICTATOR NAME: Anna Odell MD CHIEF COMPLAINT: History of chest pain and abnormal myocardial perfusion scan. HISTORY OF PRESENT ILLNESS: The patient is a 61-year-old white female with underlying history of hypertension and came in with history of chest pain, had a perfusion study with anterior hypoperfusion and has a history of GERD and in view of the symptoms with hyperlipidemia and positive family history advised to have cardiac catheterization to delineate coronary anatomy. ALLERGIES: CODEINE. MEDICATIONS: She is on metoprolol 25 mg once a day, Lipitor 40 mg once a day, vitamin C 1000 mg once a day, vitamin B12 once a day, gabapentin 200 mg at bedtime, letrozole 2.5 mg as directed, melatonin 10 mg 2 tablets at bedtime, vitamin D3 3000 units daily. PAST MEDICAL HISTORY: History of colon resection, Johnson's esophagus, hypertension and chronic diastolic heart failure, right breast lumpectomy post-chemotherapy, hypertension, hypertensive heart disease, hyperlipidemia. SOCIAL HISTORY: She is a nonsmoker and had a catheterization done in 2018, nonflow obstructive CAD, hysterectomy, tubal ligation, lumpectomy, cholecystectomy, colonoscopy in 2012, right hip operation. Prior history of smoking, quit smoking in 2012, no ethanol abuse. FAMILY HISTORY: Positive for heart problems with mother of kidney and heart problems. Father of an OR at 67. REVIEW OF SYSTEMS: Fatigue, weakness, chronic pain, chest heaviness. PHYSICAL EXAMINATION: GENERAL: Alert, awake, oriented. VITAL SIGNS: She is 5 feet 5 inches, 222 pounds, 130/60 blood pressure, pulse is 65, respirations 18. BMI is 36.9. HEENT: Unremarkable. NECK: No JVD, no carotid bruits. CHEST: Thick chest wall. LUNGS: Poor air entry bilaterally. HEART: Sounds normal. ABDOMEN: Truncal obesity. No organomegaly. EXTREMITIES: Distal pulses fairly well felt. No dependent edema. NEUROLOGIC: Intact. Abnormal perfusion study with a TID of 1.56 medium size, moderate hypoperfusion with reperfusion noted. Anterior wall, inferior and lateral perfusion was noted. Septum also shows a reperfusion. Ejection fraction is about 35% based on this, a TID is definitely abnormal. IMPRESSION: Abnormal myocardial perfusion scan, history of angina, dyspnea, hypertension, multiple risk factors of coronary artery disease. PLAN: Cardiac catheterization. Anna Odell MD DR: DEBBIE TID: [id number] RECEIPT: [id number]
--- NOTE | 2022-06-15 00:02 | [facility] ---
DATE OF SERVICE: 06/14/2022 DICTATOR NAME: Anna Odell MD HEART CATHETERIZATION REPORT PRECATHETERIZATION DIAGNOSES: Abnormal myocardial perfusion scan, abnormal TID, history of chest pain, hypertension, hyperlipidemia. POSTCATHETERIZATION DIAGNOSES: Short left main trunk bifurcating into LAD and a large, dominant circumflex. LAD is type 3 vessel with a diagonal branch, appears to be fully patent. Circumflex is a large vessel, almost a 4 mm vessel with a large obtuse marginal branch with some tortuosity, but no flow obstruction is documented. Right coronary artery is small, nondominant vessel, fully patent. Left ventricle is normal in size with an LVEDP of 12 mm with good wall contractility, ejection fraction of 60%. Mynx control closure device used. PREOPERATIVE MEDICATIONS: Phenergan 50 mg p.o., Valium 2.5 mg p.o., fentanyl 50 mcg IV and Versed 1 mg IV. ANTICOAGULATION: Heparin 2000 units intra-arterially, 2000 units in the flush solution, 1000 units in the dye solution. DYE USED: Visipaque, total amount is 73 mL. CATHETERS: JL4 6-Maldivian, JR4 6-Maldivian, 6-Maldivian angled pigtail catheter. ARTERIAL TIME: 6 minutes. FLUOROSCOPY TIME: 1.2 minutes. PROCEDURES: Left heart catheterization, bilateral selective coronary arteriography, left ventriculography by right femoral Artemio approach. PROCEDURE IN DETAIL: Under local anesthesia, right femoral artery was punctured percutaneously by arterial needle, guide wire passed in right femoral artery, 6-Maldivian Cordis sheath introduced, side port of the sheath used for femoral arterial pressure monitoring. Sheath anchored with suture. Left Artemio catheter introduced over guide wire into ascending aorta left coronary artery cannulated and left coronary angiography performed in TYREE and CASTILLO projections with craniocaudal applications to visualize all branches. Left catheter exchanged for right coronary catheter and right coronary angiography performed in TYREE and CASTILLO. This catheter exchanged for 6-Maldivian pigtail catheter and catheter crossed the aortic valve and left ventricular LVEDP measured and LV gram performed in 30 degrees CASTILLO view with 30 mL Omnipaque dye and panning of descending aorta attempted. Patient tolerated procedure well. No complications of procedure. Angio-Seal deployed for hemostasis. LVEDP is 12 mm, LV pressure 120/12, femoral artery pressure 130/60 with a mean of 80. No gradient across the aorta. FINAL CONCLUSION: Normal coronary angiogram, normal LV function. Risk factor management, optimal medical therapy, weight loss, chest pain, probably noncardiac in origin. PLAN: At this time, we will see her back in the office in 2 weeks. Continue same medications. Anna Odell MD DR: AVA/TR TID: [id number] RECEIPT: [id number]
== END 2022-06-14 11:25 | disposition home or self-care (01) ==
LOC: SDC 05:50
PROVIDERS: ATTEND Specialist
DX: I25.10 Atherosclerotic heart disease of native coronary artery without angina pectoris (principal); I10 Essential (primary) hypertension; E78.5 Hyperlipidemia, unspecified; G89.29 Other chronic pain; Z87.891 Personal history of nicotine dependence; Z88.6 Allergy status to analgesic agent; Z90.49 Acquired absence of other specified parts of digestive tract; Z82.49 Family history of ischemic heart disease and other diseases of the circulatory system; Z98.890 Other specified postprocedural states; Z79.01 Long term (current) use of anticoagulants; Z90.710 Acquired absence of both cervix and uterus
CPT/HCPCS: 71046; 80053; 85025; 36415; 85610; 85730; 93005; 93458; 99153; 99152; J7030 ×2; J1644 ×2; C1894 ×3; J2250; J3010; Q9967; C1760; C1769; Q9966